=== PATIENT | male | born 1975 | race Two or more races ===

== ENCOUNTER 2020-03-26 18:15 | Inpatient (IN) | payer OTHER ==
[2020-03-26] MEDS ORDERED: ACETAMINOPHEN TAB 500 MG TAB PO STA ×2 (18:51→22:16)
--- NOTE | 2020-03-26 19:25 | ED ---
General Adult HPI - General Chief complaint: Upper Respiratory Infection Stated complaint: Covid, SOB Time Seen by Provider: 03/26/20 18:26 Source: patient, police, RN notes reviewed, old records reviewed Mode of arrival: ambulatory Limitations: no limitations - History of Present Illness Initial comments: 45-year-old male presents from [facility] with concerns for shortness of breath weakness. Patient tested positive for Reyes virus infection on Saturday. His symptoms started last Saturday. He is on day 8 of symptoms. Patient has a history of hypertension and diabetes. Patient states that he has been feeling weak. He reports his symptoms became unmanageable at the detention and Patient was transported to emergency department. Patient has history of asthma. - Related Data Allergies Allergy/AdvReac Type Severity Reaction Status Date / Time No Known Allergies Allergy Verified 03/26/20 18:22 Review of Systems ROS Statement: Those systems with pertinent positive or pertinent negative responses have been documented in the HPI. ROS Other: All systems not noted in ROS Statement are negative. Past Medical History Past Medical History: Asthma, Diabetes Mellitus, GERD/Reflux, Hypertension, Prostate Disorder, Sleep Apnea/CPAP/BIPAP Additional Past Medical History / Comment(s): Covid 19 History of Any Multi-Drug Resistant Organisms: None Reported Past Surgical History: Joint Replacement Additional Past Surgical History / Comment(s): rt hip, abd surgery Past Psychological History: No Psychological Hx Reported Smoking Status: Former smoker Past Alcohol Use History: None Reported Past Drug Use History: None Reported General Exam - General Exam Comments Initial Comments: 45 year old male. No distress Limitations: no limitations General appearance: alert, in no apparent distress Head exam: Present: atraumatic, normocephalic, normal inspection Eye exam: Present: normal appearance, PERRL, EOMI. Absent: scleral icterus, conjunctival injection, periorbital swelling ENT exam: Present: normal exam, mucous membranes moist Neck exam: Present: normal inspection. Absent: tenderness, meningismus, lymphadenopathy Respiratory exam: Present: wheezes. Absent: normal lung sounds bilaterally, respiratory distress, rales, rhonchi, stridor Cardiovascular Exam: Present: regular rate, normal rhythm, normal heart sounds. Absent: systolic murmur, diastolic murmur, rubs, gallop, clicks GI/Abdominal exam: Present: soft, normal bowel sounds. Absent: distended, tenderness, guarding, rebound, rigid Extremities exam: Present: normal inspection, full ROM, normal capillary refill. Absent: tenderness, pedal edema, joint swelling, calf tenderness Back exam: Present: normal inspection Neurological exam: Present: alert, oriented X3, CN II-XII intact Psychiatric exam: Present: normal affect, normal mood Skin exam: Present: warm Course Vital Signs 03/26/20 03/26/20 03/26/20 18:18 19:00 19:35 Temperature 100.0 F H Pulse Rate 93 80 Respiratory 22 23 23 Rate Blood Pressure 106/70 114/70 O2 Sat by Pulse 95 93 L Oximetry 03/26/20 21:35 Temperature Pulse Rate 78 Respiratory 23 Rate Blood Pressure 116/67 O2 Sat by Pulse 92 L Oximetry EKG Findings - EKG Comments: EKG Findings:: EKG performed at 1848 shows normal sinus rhythm normal EKG. Ventricular rate of 86 bpm. MO interval is 152 ms. QRS ration is 96 most seconds. QT QTc is 360/4:30 milliseconds. Medical Decision Making - Medical Decision Making 45-year-old male presents emergency department today with weakness worsening shortness of breath and cough. He is from [facility]. He was diagnosed with Covid on Saturday. At this time patient's chest x-ray shows interstitial pneumonia. Was found to be hypoxic satting at 90% on room air. Placed on 2 L oxygen. Is given IV fluid bolus. Chest x-ray shows pneumonia and was started on Rocephin. At this time Patient will be admitted due to hypoxia and pneumonia due to Covid 19. Discussed case with Dr. Stewart and discussed with Dr. Rojas, whom requests pulmonology on consult. - Lab Data Result diagrams: 03/26/20 19:16 03/26/20 19:16 Lab Results 03/26/20 03/26/20 03/26/20 Range/Units 19:16 19:16 19:16 WBC 2.9 L (3.8-10.6) k/uL RBC 4.74 (4.30-5.90) m/uL Hgb 12.8 L (13.0-17.5) gm/dL Hct 38.7 L (39.0-53.0) % MCV 81.8 (80.0-100.0) fL MCH 27.0 (25.0-35.0) pg MCHC 33.1 (31.0-37.0) g/dL RDW 14.4 (11.5-15.5) % Plt Count 171 (150-450) k/uL MPV 7.8 Neutrophils % 76 % Lymphocytes % 16 % Monocytes % 4 % Eosinophils % 1 % Basophils % 0 % Neutrophils # 2.2 (1.3-7.7) k/uL Lymphocytes # 0.5 L (1.0-4.8) k/uL Monocytes # 0.1 (0-1.0) k/uL Eosinophils # 0.0 (0-0.7) k/uL Basophils # 0.0 (0-0.2) k/uL PT 9.9 (9.0-12.0) sec INR 0.9 (<1.2) APTT 27.9 (22.0-30.0) sec D-Dimer 0.25 (<0.60) mg/L FEU Sodium 135 L (137-145) mmol/L Potassium 4.1 (3.5-5.1) mmol/L Chloride 102 (98-107) mmol/L Carbon Dioxide 26 (22-30) mmol/L Anion Gap 7 mmol/L BUN 15 (9-20) mg/dL Creatinine 0.68 (0.66-1.25) mg/dL Est GFR (CKD-EPI)AfAm >90 (>60 ml/min/1.73 sqM) Est GFR (CKD-EPI)NonAf >90 (>60 ml/min/1.73 sqM) Glucose 111 H (74-99) mg/dL Plasma Lactic Acid Hesham (0.7-2.0) mmol/L Calcium 8.2 L (8.4-10.2) mg/dL Magnesium 2.0 (1.6-2.3) mg/dL Total Bilirubin 0.7 (0.2-1.3) mg/dL AST 57 (17-59) U/L ALT 37 (4-49) U/L Alkaline Phosphatase 118 (38-126) U/L Lactate Dehydrogenase 680 H (313-618) U/L C-Reactive Protein 83.4 H (<10.0) mg/L Total Protein 6.9 (6.3-8.2) g/dL Albumin 3.6 (3.5-5.0) g/dL 03/26/20 Range/Units 19:16 WBC (3.8-10.6) k/uL RBC (4.30-5.90) m/uL Hgb (13.0-17.5) gm/dL Hct (39.0-53.0) % MCV (80.0-100.0) fL MCH (25.0-35.0) pg MCHC (31.0-37.0) g/dL RDW (11.5-15.5) % Plt Count (150-450) k/uL MPV Neutrophils % % Lymphocytes % % Monocytes % % Eosinophils % % Basophils % % Neutrophils # (1.3-7.7) k/uL Lymphocytes # (1.0-4.8) k/uL Monocytes # (0-1.0) k/uL Eosinophils # (0-0.7) k/uL Basophils # (0-0.2) k/uL PT (9.0-12.0) sec INR (<1.2) APTT (22.0-30.0) sec D-Dimer (<0.60) mg/L FEU Sodium (137-145) mmol/L Potassium (3.5-5.1) mmol/L Chloride (98-107) mmol/L Carbon Dioxide (22-30) mmol/L Anion Gap mmol/L BUN (9-20) mg/dL Creatinine (0.66-1.25) mg/dL Est GFR (CKD-EPI)AfAm (>60 ml/min/1.73 sqM) Est GFR (CKD-EPI)NonAf (>60 ml/min/1.73 sqM) Glucose (74-99) mg/dL Plasma Lactic Acid Hesham 1.0 (0.7-2.0) mmol/L Calcium (8.4-10.2) mg/dL Magnesium (1.6-2.3) mg/dL Total Bilirubin (0.2-1.3) mg/dL AST (17-59) U/L ALT (4-49) U/L Alkaline Phosphatase (38-126) U/L Lactate Dehydrogenase (313-618) U/L C-Reactive Protein (<10.0) mg/L Total Protein (6.3-8.2) g/dL Albumin (3.5-5.0) g/dL - Radiology Data Radiology results: report reviewed Chest x-ray shows pulmonary interstitial pneumonia. Normal heart. Disposition Clinical Impression: Hypoxia, Pneumonia, COVID-19 Disposition: ADMITTED IP TO THIS HOSP Condition: Stable Is patient prescribed a controlled substance at d/c from ED?: No Referrals: None,Stated [Primary Care Provider] - 1-2 days Time of Disposition: 21:48
[2020-03-26 19:31] LABS: Basophils % (A) 0 %; Eosinophils % (A) 1 %; HCT 38.7 % (39.0-53.0); HGB 12.8 gm/dL (13.0-17.5); Lymphocytes # (A) 0.5 k/uL (1.0-4.8); Lymphocytes % (A) 16 %; MCHC 33.1 g/dL (31.0-37.0); MCV 81.8 fL (80.0-100.0); Mean Platelet Volume 7.8; Monocytes # (A) 0.1 k/uL (0-1.0); Monocytes % (A) 4 %; Neutrophils # (A) 2.2 k/uL (1.3-7.7); Neutrophils % (A) 76 %; Platelet Count 171 k/uL (150-450); RBC 4.74 m/uL (4.30-5.90); RDW 14.4 % (11.5-15.5); WBC 2.9 k/uL (3.8-10.6)
--- NOTE | 2020-03-26 19:35 | XR ---
EXAMINATION TYPE: XR chest 1V portable DATE OF EXAM: 03/26/2020 COMPARISON: NONE HISTORY: Short of breath. Cough. TECHNIQUE: Single view FINDINGS: Heart and mediastinum are normal. There is some diffuse pulmonary interstitial infiltrate. There is poor inspiration. There is no pleural effusion. IMPRESSION: There is pulmonary interstitial pneumonia. Normal heart.
[2020-03-26 19:49] LABS: ALT 37 U/L (4-49); AST 57 U/L (17-59); African American GFR (CKD) >90 (>60 ml/min/1.73 sqM); Albumin 3.6 g/dL (3.5-5.0); Alkaline Phosphatase 118 U/L (38-126); Anion Gap 7 mmol/L; Blood Urea Nitrogen 15 mg/dL (9-20); C Reactive Protein 83.4 mg/L (<10.0); Calcium 8.2 mg/dL (8.4-10.2); Carbon Dioxide 26 mmol/L (22-30); Chloride 102 mmol/L (98-107); Glucose 111 mg/dL (74-99); LDH 680 U/L (313-618); Non-African American GFR(CKD) >90 (>60 ml/min/1.73 sqM); Potassium 4.1 mmol/L (3.5-5.1); Sodium 135 mmol/L (137-145); Total Bilirubin 0.7 mg/dL (0.2-1.3); Total Protein 6.9 g/dL (6.3-8.2)
[2020-03-26 19:57] LABS: D-Dimer 0.25 mg/L FEU (<0.60); INR 0.9 (<1.2); Partial Thromboplastin Time 27.9 sec (22.0-30.0); Prothrombin Time 9.9 sec (9.0-12.0)
[2020-03-26] MEDS ORDERED: SODIUM CHLORIDE 0.9% 1,000 ML IV ONE (20:53)
[2020-03-26] MEDS ORDERED: cefTRIAXone IN SWFI 1,000 MG/10 ML SYRINGE IVP STA (20:55)
[2020-03-26] MEDS: SODIUM CHLORIDE 0.9% 1,000 ML IV SCH (21:31)
[2020-03-26] MEDS ORDERED: DEXAMETHASONE SOD PHOSPHATE 10 MG/ML 1 ML VIAL IV STA (21:32)
[2020-03-26] MEDS ORDERED: ALBUTEROL HFA INHALER INHALATION STA (21:32)
[2020-03-26] MEDS ORDERED: NALOXONE 0.4 MG/ML 1 ML VIAL IV PRN (22:15)
[2020-03-26] MEDS ORDERED: MORPHINE SULFATE 4 MG/ML SYRINGE IV PRN (22:15)
[2020-03-26] MEDS ORDERED: IBUPROFEN 400 MG TAB PO PRN (22:15)
[2020-03-26] MEDS ORDERED: ONDANSETRON 4 MG/2 ML VIAL IVP PRN (22:15)
[2020-03-26] MEDS ORDERED: KETOROLAC 15 MG/ML 1 ML VIAL IVP PRN (22:15)
[2020-03-26] MEDS: ACETAMINOPHEN TAB 325 MG TAB PO SCH (22:58)
[2020-03-26] MEDS ORDERED: LOPERAMIDE 2 MG CAP PO PRN (23:10)
[2020-03-26] MEDS ORDERED: ALBUTEROL NEBULIZED 2.5 MG/3 ML INHALATION PRN (23:10)
[2020-03-26] MEDS ORDERED: DOCUSATE 100 MG CAP PO PRN (23:10)
[2020-03-26] MEDS ORDERED: ACETAMINOPHEN TAB 325 MG TAB PO PRN (23:10)
[2020-03-26 23:43] LABS: Ferritin 96.4 ng/mL (22.0-322.0)
[2020-03-27] MEDS: ACETAMINOPHEN TAB 325 MG TAB PO SCH ×3 (05:11→17:27)
[2020-03-27] MEDS: ALBUTEROL HFA INHALER INHALATION SCH ×5 (07:21→19:31)
[2020-03-27 08:46] LABS: Glucose,Whole Blood 143 mg/dL (75-99)
[2020-03-27] MEDS ORDERED: DEXAMETHASONE SOD PHOSPHATE 10 MG/ML 1 ML VIAL IV SCH (09:00)
[2020-03-27] MEDS ORDERED: NAPROXEN 500 MG PO SCH (09:00)
[2020-03-27] MEDS: PANTOPRAZOLE 40 MG/10 ML VIAL IV SCH (09:10)
[2020-03-27] MEDS: ZINC SULFATE 220 MG CAP PO SCH (09:32)
[2020-03-27] MEDS: glipiZIDE 5 MG TAB PO SCH (09:33)
[2020-03-27] MEDS: DULoxetine HCL 60 MG CAPSULE.DR PO SCH ×2 (09:33→21:25)
[2020-03-27] MEDS: dexAMETHasone 2 MG TAB PO SCH (09:33)
[2020-03-27] MEDS: ASCORBIC ACID 500 MG TAB PO SCH (09:33)
--- NOTE | 2020-03-27 09:57 | CONS ---
CONSULTATION PULMONARY/CRITICAL CARE CONSULTATION: DATE OF SERVICE: March 27, 2020 HISTORY OF PRESENT ILLNESS: This is a 45-year-old male who resides at [facility]. He has been there for a couple years. He apparently tested positive for COVID-19 infection this past Saturday, although he states his symptoms began 3 or 4 days prior to that, maybe on the prior Saturday. He has a number of different complaints including nasal congestion, shortness of breath, cough, sore throat, and just feeling weak and fatigued. He apparently has a history of multiple medical problems including diabetes, hypertension, hyperlipidemia, and a hernia. The patient is a non smoker. He sees a nurse practitioner at the custodial facility. Currently, the patient is not receiving any IV fluids. The patient is not on any supplemental oxygen. His saturations are right around the 90-92 percent range. He does not appear to be in any great distress. ALLERGIES: Denied. HOME MEDICATIONS: Include metformin, Vistaril, Glucotrol, Flomax, Protonix, Zofran, naproxen, Dulera, loperamide, lisinopril, insulin, famotidine, Colace, Cymbalta, Zyrtec, Zithromax, Lipitor, albuterol and Tylenol. MEDICAL HISTORY: Positive for asthma, diabetes, GERD, hypertension, hyperlipidemia, sleep apnea, and BPH. SURGICAL HISTORY: Includes right hip surgery and abdominal surgery. He also had a joint replacement. SOCIAL HISTORY: Positive for previous tobacco use. Denies any alcohol or illicit drug use. FAMILY HISTORY: Not reported. OCCUPATIONAL HISTORY: Not noted. Again, he has been a resident of the [facility] for 2 years. REVIEW OF SYSTEMS: CONSTITUTIONAL weakness and fatigue. NEUROLOGIC negative. HEENT: Sore throat, nasal congestion. CARDIOVASCULAR negative. PULMONARY: Shortness of breath, cough, chest congestion. GI negative. negative. RHEUMATOLOGIC negative. IMMUNOLOGIC negative. ENDOCRINOLOGIC negative. DERMATOLOGIC negative. PHYSICAL EXAMINATION: VITAL SIGNS: Current vital signs are reviewed. Temperature is 97.4, heart rate 65, respiratory rate 18, blood pressure 113/74, mean 87. Room-air saturation about 90-92 percent. On 4 L he was 96%. GENERAL: Appears in no acute distress. HEENT: Examination is grossly unremarkable. NECK: Supple. Full range of motion. No adenopathy. Neck veins are flat. CARDIOVASCULAR: Examination reveals a regular rhythm and rate. S1, S2 normal. LUNGS: Scattered rhonchi. No wheezes or crackles. ABDOMEN: Obese. EXTREMITIES are intact. No cyanosis, clubbing, or edema. SKIN: Without rash. No wheeze. NEUROLOGIC: Brief neurological examination is nonfocal. LABS: Reviewed. White count 2.9, hemoglobin 12.8, hematocrit 38.7, platelet count 171,000. Lymphocyte count is low. So he is both leukopenic and lymphopenic. PT/INR, PTT normal. D-dimer normal. Sodium 135, potassium 4.1 chloride 102 CO2 26, anion gap is 7. BUN and creatinine were 15 and 0.68. Lactic acid was normal. Calcium 8.2, LDH 680, C-reactive protein 83.4, procalcitonin level was low at 0.04. A chest x-ray shows diffuse interstitial changes consistent with COVID-19 pneumonitis. Current medications are reviewed. He is on Tylenol, albuterol inhaler, Lipitor, Zithromax, Symbicort, Zyrtec, Decadron, Colace, Cymbalta, famotidine, Glucotrol, hydroxyzine, Motrin, insulin, Toradol, lisinopril, Imodium, metformin, morphine, Narcan, Zofran, Protonix and Flomax. ASSESSMENT: 1. COVID-19 pneumonitis, with minimal pulmonary complaints at this time. 2. History of chronic bronchial asthma, currently stable. 3. History of diabetes. 4. Hypertension. 5. Hyperlipidemia. 6. Gastroesophageal reflux disease. PLAN: Currently, medications are reviewed. His chest x-ray shows some diffuse interstitial pattern. The patient will be placed on albuterol and Symbicort. Zithromax will be DC'd in light of the very low procalcitonin level. The patient's Decadron can be taken orally. No additional recommendations are made. The patient should also be taking vitamin C, vitamin D3, and zinc. We will add those. Additional recommendations and suggestions are forthcoming. Prognosis is thought to be generally good. MMODL / IJN: [id number] /
[2020-03-27] MEDS: lisinopriL 10 MG TAB PO SCH (10:01)
[2020-03-27] MEDS: metFORMIN 500 MG TAB PO SCH ×3 (10:01→17:31)
[2020-03-27] MEDS: PANTOPRAZOLE 40 MG TABLET PO SCH (10:01)
[2020-03-27] MEDS: SODIUM CHLORIDE 0.9% 1,000 ML IV SCH (10:02)
[2020-03-27] MEDS: NON FORMULARY DRUG (Cetirizine Hcl [Cetirizine Hcl] 10 MG Tablet) PO SCH (10:21)
[2020-03-27] MEDS: CHOLECALCIFEROL 400 UNIT TAB PO SCH (10:21)
[2020-03-27] MEDS: SYMBICORT 160-4.5 MCG INHALER INHALATION SCH (11:51)
--- NOTE | 2020-03-27 18:38 | P.HPIM ---
History of Present Illness H&P Date: 03/27/20 Chief Complaint: Difficulty in breathing Mr. Rose is a 45-year-old male with a past medical history of asthma, type 2 diabetes mellitus, GERD, hypertension, prostate disorder, obstructive sleep apnea, who is a resident of [facility] brought into the hospital for difficulty in breathing as he was tested positive for coVID 19 infection last Saturday. Patient states that he has been having symptoms 3-4 days prior to testing him for Covid. He complains of cough with difficulty in breathing, sore throat generalized weakness and fatigue. He also mentions that he has multiple medical issues as mentioned above. Patient also complains of myalgia. He denies having any chest pain or palpitations. No abdominal pain nausea vomiting or diarrhea. No dysuria or hematuria. Patient denies having any swelling of his extremities. In the ER, at the time of admission patient had a fever of 100.0, pulse rate of 93, respiratory rate 22, blood pressure 10 6 x 70, saturating at 93% on room air. He had labs done showing a white count of 2.9, hemoglobin 12.8, platelets 171. Sodium 135, Miranda 4.1, chloride 102, bicarbonate 27. When necessary 15, creatinine 0.68 blood sugars between 100s to 150s. D-dimer 0.25, ferritin 96.4, C-reactive protein 83.4, lactate dehydrogenase 680. Review of Systems REVIEW OF SYSTEMS: PSYCH: No anxiety or depression NEURO:No c/o weakness of the extremties, No facial droop, No speech abnormalities. VASCULAR: Peripheral nervous system within the normal limits no edema HEMATOLOGIC: No history of easy bleeding and bruising . RESPIRATORY: No cough, No SOB, No chest discomfort. IMMUNE: No recurrent infections INTEGUMENT: no rashes OPHTHALMOLOGIC: No blurry vision and no eye discharge : No dysuria or hematuria CARDIAC: No chest pain , shortness of breath , paroxysmal nocturnal dyspnea MUSCULOSKELETAL : No Aches or pains in the joints or muscles. GI: No abdominal pain, Nausea or vomiting. No constipation or diarrhea. All 13 ROS done and negative except for the above. Past Medical History Past Medical History: Asthma, Diabetes Mellitus, GERD/Reflux, Hypertension, Prostate Disorder, Sleep Apnea/CPAP/BIPAP Additional Past Medical History / Comment(s): Covid 19 History of Any Multi-Drug Resistant Organisms: None Reported Past Surgical History: Joint Replacement Additional Past Surgical History / Comment(s): rt hip, abd surgery Past Psychological History: No Psychological Hx Reported Smoking Status: Former smoker Past Alcohol Use History: None Reported Past Drug Use History: None Reported Medications and Allergies Home Medications Medication Instructions Recorded Confirmed Type Acetaminophen Tab [Tylenol] 650 mg PO BID PRN 03/26/20 03/26/20 History Albuterol Inhaler [Ventolin Hfa 1 puff INHALATION RT-QID 03/26/20 03/26/20 History Inhaler] Albuterol Nebulized [Ventolin 2.5 mg INHALATION RT-TID PRN 03/26/20 03/26/20 History Nebulized] Atorvastatin Calcium [Lipitor] 20 mg PO HS 03/26/20 03/26/20 History Azithromycin [Zithromax] 250 mg PO HS 03/26/20 03/26/20 History Cetirizine HCl 10 mg PO DAILY 03/26/20 03/26/20 History DULoxetine HCL [Cymbalta] 60 mg PO BID 03/26/20 03/26/20 History Docusate [Colace] 100 mg PO BID PRN 03/26/20 03/26/20 History Famotidine [Pepcid] 20 mg PO HS 03/26/20 03/26/20 History Insulin Detemir (Levemir) [Levemir] 10 unit SQ HS 03/26/20 03/26/20 History Insulin Regular [HumuLIN R] See Protocol SQ ACHS 03/26/20 03/26/20 History Lisinopril [Zestril] 10 mg PO DAILY 03/26/20 03/26/20 History Loperamide [Imodium] 4 mg PO TID PRN 03/26/20 03/26/20 History Mometasone/Formoterol [Dulera 200 1 puff INHALATION RT-DAILY 03/26/20 03/26/20 History Mcg-5 Mcg Inhaler] Naproxen 500 mg PO BID 03/26/20 03/26/20 History Ondansetron [Zofran] 4 - 8 mg PO TID PRN 03/26/20 03/26/20 History Pantoprazole [Protonix] 40 mg PO DAILY 03/26/20 03/26/20 History Tamsulosin [Flomax] 0.4 mg PO HS 03/26/20 03/26/20 History glipiZIDE [Glucotrol] 5 mg PO DAILY 03/26/20 03/26/20 History hydrOXYzine pamoate [Vistaril] 50 mg PO HS 03/26/20 03/26/20 History metFORMIN HCL [Glucophage] 500 mg PO TID 03/26/20 03/26/20 History Allergies Allergy/AdvReac Type Severity Reaction Status Date / Time No Known Allergies Allergy Verified 03/26/20 22:05 Physical Exam Vitals: Vital Signs Temp Pulse Resp BP Pulse Ox 03/27/20 17:26 98.3 F 84 18 122/81 92 L 03/27/20 12:31 98.6 F 83 17 121/72 93 L 03/27/20 08:29 98.4 F 76 18 126/97 93 L 03/27/20 05:10 97.4 F L 65 18 113/74 93 L 03/27/20 02:05 98 F 73 18 130/85 96 03/27/20 00:20 84 22 93 L 03/26/20 23:00 80 22 92 L 03/26/20 22:00 77 23 116/67 94 L 03/26/20 21:35 78 23 116/67 92 L 03/26/20 21:30 114/73 93 L 03/26/20 21:00 116/72 96 03/26/20 20:30 111/70 96 03/26/20 20:00 114/70 96 03/26/20 19:35 80 23 114/70 93 L 03/26/20 19:34 92 L 03/26/20 19:00 23 PHYSICAL EXAM GEN. APPEARANCE: alert, in no apparent distress HEAD EXAM: atraumatic, normocephalic, normal inspection EYE EXAM: normal appearance, PERRL, EOMI. no pallor. No icterus ENT EXAM: normal exam, mucous membranes moist NECK EXAM: normal inspection. No JVD. No organomegaly. RESPIRATORY EXAM: normal lung sounds bilaterally. CARDIOVASCULAR EXAM: regular rate, normal rhythm, normal heart sounds. GI/ABDOMINAL EXAM: soft, normal bowel sounds. Absent: distended, tenderness, guarding, rebound, rigid EXTREMITIES EXAM: No edema NEUROLOGICAL EXAM: alert, oriented X3,No focal deficit PSYCHIATRIC EXAM: normal affect, normal mood SKIN EXAM: no rash Results CBC & Chem 7: 03/26/20 19:16 03/26/20 19:16 Labs: Abnormal Lab Results - Last 24 Hours (Table) 03/26/20 03/26/20 03/27/20 Range/Units 19:16 19:16 08:44 WBC 2.9 L (3.8-10.6) k/uL Hgb 12.8 L (13.0-17.5) gm/dL Hct 38.7 L (39.0-53.0) % Lymphocytes # 0.5 L (1.0-4.8) k/uL Sodium 135 L (137-145) mmol/L Glucose 111 H (74-99) mg/dL POC Glucose (mg/dL) 143 H (75-99) mg/dL Calcium 8.2 L (8.4-10.2) mg/dL Lactate Dehydrogenase 680 H (313-618) U/L C-Reactive Protein 83.4 H (<10.0) mg/L Assessment and Plan Assessment: ASSESSMENT Acute hypoxic respiratory failure secondary to COVID pneumonia Chronic bronchial asthma stable Type 2 diabetes mellitus Hypertension Hyperlipidemia GERD PLAN: Patient had chest x-ray showing interstitial pattern consistent with Covid pneumonia. Patient has been started on Decadron. We will continue with GI DVT prophylaxis. Continue with breathing treatments. Further recommendations depending on the progress of the patient.
[2020-03-27] MEDS ORDERED: AZITHROMYCIN 250 MG TAB PO SCH (21:00)
[2020-03-27] MEDS: hydrOXYzine pamoate 25 MG CAP PO SCH (21:25)
[2020-03-27] MEDS: ATORVASTATIN 20 MG TAB PO SCH (21:25)
[2020-03-27] MEDS: TAMSULOSIN 0.4 MG CAP.ER.24H PO SCH (21:25)
[2020-03-27] MEDS: ENOXAPARIN 40 MG/0.4 ML SYRINGE SQ SCH (21:26)
[2020-03-27] MEDS: FAMOTIDINE 20 MG TAB PO SCH (21:26)
[2020-03-28] MEDS: INSULIN DETEMIR (LEVEMIR) 100 UNIT/ML SYR SQ SCH ×2 (01:16→20:43)
[2020-03-28] MEDS: SODIUM CHLORIDE 0.9% 1,000 ML IV SCH ×3 (01:19→20:48)
[2020-03-28 01:24] LABS: Glucose,Whole Blood 116 mg/dL (75-99)
[2020-03-28] MEDS: ACETAMINOPHEN TAB 325 MG TAB PO SCH ×4 (07:29→22:53)
[2020-03-28] MEDS: ALBUTEROL HFA INHALER INHALATION SCH ×4 (07:41→20:22)
[2020-03-28 08:02] LABS: Basophils % (A) 0 %; Eosinophils % (A) 0 %; HCT 36.8 % (39.0-53.0); HGB 11.9 gm/dL (13.0-17.5); Hypochromasia Slight; Lymphocytes # (A) 0.7 k/uL (1.0-4.8); Lymphocytes % (A) 11 %; MCH 26.9 pg (25.0-35.0); MCHC 32.5 g/dL (31.0-37.0); MCV 82.7 fL (80.0-100.0); Mean Platelet Volume 7.5; Monocytes # (A) 0.2 k/uL (0-1.0); Monocytes % (A) 3 %; Neutrophils # (A) 4.9 k/uL (1.3-7.7); Neutrophils % (A) 85 %; Platelet Count 243 k/uL (150-450); RBC 4.44 m/uL (4.30-5.90); RDW 14.4 % (11.5-15.5); WBC 5.8 k/uL (3.8-10.6)
[2020-03-28] MEDS: PANTOPRAZOLE 40 MG TABLET PO SCH (09:32)
[2020-03-28] MEDS: DULoxetine HCL 60 MG CAPSULE.DR PO SCH ×2 (09:32→20:43)
[2020-03-28] MEDS: glipiZIDE 5 MG TAB PO SCH (09:32)
[2020-03-28] MEDS: metFORMIN 500 MG TAB PO SCH ×3 (09:33→18:12)
[2020-03-28] MEDS: lisinopriL 10 MG TAB PO SCH (09:33)
[2020-03-28] MEDS: PANTOPRAZOLE 40 MG/10 ML VIAL IV SCH (09:35)
[2020-03-28] MEDS: dexAMETHasone 2 MG TAB PO SCH (09:44)
[2020-03-28] MEDS: CHOLECALCIFEROL 400 UNIT TAB PO SCH (09:44)
[2020-03-28] MEDS: ZINC SULFATE 220 MG CAP PO SCH (09:44)
[2020-03-28] MEDS: ASCORBIC ACID 500 MG TAB PO SCH (09:44)
[2020-03-28] MEDS: ENOXAPARIN 40 MG/0.4 ML SYRINGE SQ SCH (09:45)
[2020-03-28 13:10] LABS: African American GFR (CKD) 124.2 (60.0-200.0); Anion Gap 6.8 mmol/L (4.00-12.00); BUN/Creat Ratio 17.5 Ratio (12.00-20.00); Calcium 8.4 mg/dL (8.7-10.3); Carbon Dioxide 28.2 mmol/L (21.6-31.8); Non-African American GFR(CKD) 107.1 (60.0-200.0); Potassium 3.9 mmol/L (3.5-5.5)
[2020-03-28 13:29] LABS: C Reactive Protein 4.6 mg/dL (0.0-0.8)
[2020-03-28] MEDS ORDERED: BENZOCAINE/MENTHOL LOZENG 1 EACH LOZENGE MUCOUS MEM PRN (13:37)
--- NOTE | 2020-03-28 14:22 | P.PN ---
Subjective Progress Note Date: 03/28/20 This is a 45-year-old male patient came from [facility] with CoVID 19 infection on 03/22/2020 and the patient was symptomatically for 3 or 4 days prior to that and his symptoms were those of nasal congestion and shortness of breath and cough and sore throat. He is a nonsmoker. He is not on any supplemental oxygen. Pulse ox is in the order of 90-92% on room air oxygen. He is known to have asthma, diabetes, hypertension, acid reflux, hyperlipidemia, SVETLANA and BPH. D-dimer is low at 0.26. The patient white cell count is at 5.8. Showing bilateral chest x-ray showing bilateral pulmonary infiltrates.. The patient currently resides of oxygen by nasal cannula with a pulse of 92%. The patient is currently on Lovenox 40 mg subcu for DVT prophylaxis, Decadron 6 mg by mouth daily and he was not given Remdesivir. Nevertheless, by the time he arrived to the medical floor, the patient was placed on 2 L of oxygen by nasal cannula to bring his pulse ox above 90%. As mentioned, chest x-rays consistent with bilateral pulmonary infiltrates/pneumonia. Objective - Vital Signs Vital signs: Vital Signs Temp 98.2 F 03/28/20 01:17 Pulse 77 03/28/20 03:35 Resp 16 03/28/20 08:00 BP 110/68 03/28/20 01:17 Pulse Ox 92 L 03/28/20 03:35 Intake & Output 03/27/20 03/28/20 03/28/20 18:59 06:59 18:59 Other: Voiding Method Urinal - Exam GEN. APPEARANCE: alert, in no apparent distress HEAD EXAM: atraumatic, normocephalic, normal inspection EYE EXAM: normal appearance, PERRL, EOMI. no pallor. No icterus ENT EXAM: normal exam, mucous membranes moist NECK EXAM: normal inspection. No JVD. No organomegaly. RESPIRATORY EXAM: normal lung sounds bilaterally. CARDIOVASCULAR EXAM: regular rate, normal rhythm, normal heart sounds. GI/ABDOMINAL EXAM: soft, normal bowel sounds. Absent: distended, tenderness, guarding, rebound, rigid EXTREMITIES EXAM: No edema NEUROLOGICAL EXAM: alert, oriented X3,No focal deficit PSYCHIATRIC EXAM: normal affect, normal mood SKIN EXAM: no rash - Labs CBC & Chem 7: 03/28/20 07:28 03/28/20 07:28 Labs: Abnormal Lab Results - Last 24 Hours (Table) 03/28/20 03/28/20 03/28/20 Range/Units 01:23 07:28 07:28 Hgb 11.9 L (13.0-17.5) gm/dL Hct 36.8 L (39.0-53.0) % Lymphocytes # 0.7 L (1.0-4.8) k/uL POC Glucose (mg/dL) 116 H (75-99) mg/dL Calcium 8.4 L (8.7-10.3) mg/dL Lactate Dehydrogenase 274 H (120-246) U/L C-Reactive Protein 4.6 H (0.0-0.8) mg/dL Microbiology - Last 24 Hours (Table) 03/26/20 19:16 Blood Culture - Preliminary Blood No Growth after 24 hours Assessment and Plan Plan: 1 Acute hypoxic respiratory failure secondary to COVID pneumonia, the patient is currently on 2 L of oxygen by nasal cannula with a pulse is 92%. Chest x-ray showing bilateral pulmonary infiltrates consistent with COVID 19 relates pneumonia. 2 acute shortness of breath secondary to above 3 Chronic bronchial asthma stable 4 Type 2 diabetes mellitus 5 Hypertension 6 Hyperlipidemia 7 GERD pplan We'll treat this patient he is currently outside the window for Remdesivir, Decadron and DVT prophylaxis with Lovenox. Continue vitamin C, vitamin D, melatonin, Pepcid and wheezing. We'll monitor his progress. IV hydration with fluids normal saline at rate of 75 mL an hour.
--- NOTE | 2020-03-28 16:11 | P.PN ---
Subjective Progress Note Date: 03/28/20 Mr. Rose is a 45-year-old male with a past medical history of asthma, type 2 diabetes mellitus, GERD, hypertension, prostate disorder, obstructive sleep apnea, who is a resident of [facility] brought into the hospital for difficulty in breathing as he was tested positive for coVID 19 infection last Saturday. Patient states that he has been having symptoms 3-4 days prior to testing him for Covid. He complains of cough with difficulty in breathing, sore throat generalized weakness and fatigue. He also mentions that he has multiple medical issues as mentioned above. Patient also complains of myalgia. He denies having any chest pain or palpitations. No abdominal pain nausea vomiting or diarrhea. No dysuria or hematuria. Patient denies having any swelling of his extremities. In the ER, at the time of admission patient had a fever of 100.0, pulse rate of 93, respiratory rate 22, blood pressure 10 6 x 70, saturating at 93% on room air. He had labs done showing a white count of 2.9, hemoglobin 12.8, platelets 171. Sodium 135, Miranda 4.1, chloride 102, bicarbonate 27. When necessary 15, creatinine 0.68 blood sugars between 100s to 150s. D-dimer 0.25, ferritin 96.4, C-reactive protein 83.4, lactate dehydrogenase 680. 03/28/2020 Patient is seen and evaluated in follow-up currently maintained 91-92% on room air. Patient is on dexamethasone, Lovenox, vitamin C and D supplements and will continue at this time. Pulmonary is following. Patient states his breathing posey s slightly improved although continues to have a sore throat. Cepacol ordered. Lactate dehydrogenase is down to 274, C-reactive protein is down to 4.6, BMP within normal limits. Review of systems: Constitutional: No reports of fatigue, fever, or chills Cardiovascular: No reports of chest pain or palpitations Respiratory: Reports mild shortness of breath and cough, reports sore throat GI: No reports of nausea, vomiting, or diarrhea : No reports of dysuria or retention Neurovascular: No reports of weakness or numbness All medications have been reviewed Objective - Vital Signs Vital signs: Vital Signs Temp 98.2 F 03/28/20 01:17 Pulse 77 03/28/20 03:35 Resp 16 03/28/20 08:00 BP 110/68 03/28/20 01:17 Pulse Ox 92 L 03/28/20 03:35 Intake & Output 03/27/20 03/28/20 03/28/20 18:59 06:59 18:59 Other: Voiding Method Urinal - Exam Gen: This is a 45-year-old male currently sitting up in bed, awake, alert and oriented 3, well-developed, well-nourished. HEENT: Head is atraumatic, normocephalic. Pupils equal, round. Sclerae is anicteric. NECK: Supple. No JVD. No lymphadenopathy. No thyromegaly. LUNGS: Diminished breath sounds bilaterally with no wheezes or rhonchi. No intercostal retractions. HEART: S1, S2 are muffled ABDOMEN: Soft. Obese. Bowel sounds are present. No masses. No tenderness. EXTREMITIES: No pedal edema. No calf tenderness. NEUROLOGICAL: Patient is awake, alert and oriented x3. Cranial nerves 2 through 12 are grossly intact. - Labs CBC & Chem 7: 03/28/20 07:28 03/28/20 07:28 Labs: Abnormal Lab Results - Last 24 Hours (Table) 03/28/20 03/28/20 Range/Units 01:23 07:28 Hgb 11.9 L (13.0-17.5) gm/dL Hct 36.8 L (39.0-53.0) % Lymphocytes # 0.7 L (1.0-4.8) k/uL POC Glucose (mg/dL) 116 H (75-99) mg/dL Microbiology - Last 24 Hours (Table) 03/26/20 19:16 Blood Culture - Preliminary Blood No Growth after 24 hours Assessment and Plan Assessment: Acute hypoxic respiratory failure secondary to COVID pneumonia Chronic bronchial asthma stable Type 2 diabetes mellitus Hypertension Hyperlipidemia GERD PLAN: Continue with current medications and symptomatic treatment. Pulmonary following. Discussed with nursing staff about continuing to monitor respiratory status. Instructed to increase activity as tolerated and continue with dae thing inhalational treatments along with dexamethasone, Lovenox, vitamin C and D supplements. Patient is currently incarcerated and police officers chaperoning him. Patient will be returning to [facility] once stabilized and discharged. Further recommendations to follow pending on the progress of the patient. Possible discharge in 24 hours.
[2020-03-28] MEDS: NON FORMULARY DRUG (Cetirizine Hcl [Cetirizine Hcl] 10 MG Tablet) PO SCH (17:04)
[2020-03-28 17:11] LABS: Glucose,Whole Blood 126 mg/dL (75-99)
[2020-03-28 20:02] LABS: Glucose,Whole Blood 107 mg/dL (75-99)
[2020-03-28] MEDS: hydrOXYzine pamoate 25 MG CAP PO SCH (20:43)
[2020-03-28] MEDS: TAMSULOSIN 0.4 MG CAP.ER.24H PO SCH (20:43)
[2020-03-28] MEDS: ATORVASTATIN 20 MG TAB PO SCH (20:43)
[2020-03-28] MEDS: FAMOTIDINE 20 MG TAB PO SCH (20:43)
[2020-03-29] MEDS: SODIUM CHLORIDE 0.9% 1,000 ML IV SCH ×3 (02:23→19:19)
[2020-03-29] MEDS: ACETAMINOPHEN TAB 325 MG TAB PO SCH ×4 (04:14→21:02)
[2020-03-29 07:31] LABS: Glucose,Whole Blood 94 mg/dL (75-99)
[2020-03-29] MEDS: ZINC SULFATE 220 MG CAP PO SCH (08:32)
[2020-03-29] MEDS: ASCORBIC ACID 500 MG TAB PO SCH (08:32)
[2020-03-29] MEDS: dexAMETHasone 2 MG TAB PO SCH (08:32)
[2020-03-29] MEDS: CHOLECALCIFEROL 400 UNIT TAB PO SCH (08:33)
[2020-03-29] MEDS: PANTOPRAZOLE 40 MG TABLET PO SCH (08:33)
[2020-03-29] MEDS: SYMBICORT 160-4.5 MCG INHALER INHALATION SCH (08:33)
[2020-03-29] MEDS: metFORMIN 500 MG TAB PO SCH ×3 (08:33→17:00)
[2020-03-29] MEDS: glipiZIDE 5 MG TAB PO SCH (08:33)
[2020-03-29] MEDS: ENOXAPARIN 40 MG/0.4 ML SYRINGE SQ SCH (08:34)
[2020-03-29] MEDS: DULoxetine HCL 60 MG CAPSULE.DR PO SCH ×2 (08:40→21:01)
[2020-03-29] MEDS: lisinopriL 10 MG TAB PO SCH (08:42)
[2020-03-29] MEDS: NON FORMULARY DRUG (Cetirizine Hcl [Cetirizine Hcl] 10 MG Tablet) PO SCH (09:11)
[2020-03-29] MEDS: ALBUTEROL HFA INHALER INHALATION SCH ×4 (09:18→19:54)
[2020-03-29 11:36] LABS: Glucose,Whole Blood 102 mg/dL (75-99)
--- NOTE | 2020-03-29 13:08 | P.PN ---
Subjective Progress Note Date: 03/29/20 This is a 45-year-old male patient came from [facility] with CoVID 19 infection on 03/22/2020 and the patient was symptomatically for 3 or 4 days prior to that and his symptoms were those of nasal congestion and shortness of breath and cough and sore throat. He is a nonsmoker. He is not on any supplemental oxygen. Pulse ox is in the order of 90-92% on room air oxygen. He is known to have asthma, diabetes, hypertension, acid reflux, hyperlipidemia, SVETLANA and BPH. D-dimer is low at 0.26. The patient white cell count is at 5.8. Showing bilateral chest x-ray showing bilateral pulmonary infiltrates.. The patient currently resides of oxygen by nasal cannula with a pulse of 92%. The patient is currently on Lovenox 40 mg subcu for DVT prophylaxis, Decadron 6 mg by mouth daily and he was not given Remdesivir. Nevertheless, by the time he arrived to the medical floor, the patient was placed on 2 L of oxygen by nasal cannula to bring his pulse ox above 90%. As mentioned, chest x-rays consistent with bilateral pulmonary infiltrates/pneumonia. On today's evaluation of 03/29/2020, the patient is on room air oxygen. He is also on Lovenox for prophylaxis and he is taking Decadron 6 mg by mouth daily. No nausea. No vomiting. Reports that there is improvement in breathing. He is having cough and some soreness in his chest whenever he coughs. Nevertheless, his oxygenation is improved considerably. Objective - Vital Signs Vital signs: Vital Signs Temp 98.3 F 03/29/20 10:57 Pulse 67 03/29/20 10:57 Resp 22 03/29/20 10:57 BP 126/74 03/29/20 10:57 Pulse Ox 91 L 03/29/20 10:57 Intake & Output 03/28/20 03/29/20 03/29/20 18:59 06:59 18:59 Intake Total 1310 Output Total 800 400 Balance -800 910 Weight 127.006 kg Intake: Oral 1310 Output: Urine 800 400 Other: Voiding Method Urinal Urinal Urinal - Exam GEN. APPEARANCE: alert, in no apparent distress HEAD EXAM: atraumatic, normocephalic, normal inspection EYE EXAM: normal appearance, PERRL, EOMI. no pallor. No icterus ENT EXAM: normal exam, mucous membranes moist NECK EXAM: normal inspection. No JVD. No organomegaly. RESPIRATORY EXAM: normal lung sounds bilaterally. CARDIOVASCULAR EXAM: regular rate, normal rhythm, normal heart sounds. GI/ABDOMINAL EXAM: soft, normal bowel sounds. Absent: distended, tenderness, guarding, rebound, rigid EXTREMITIES EXAM: No edema NEUROLOGICAL EXAM: alert, oriented X3,No focal deficit PSYCHIATRIC EXAM: normal affect, normal mood SKIN EXAM: no rash - Labs CBC & Chem 7: 03/28/20 07:28 03/28/20 07:28 Labs: Abnormal Lab Results - Last 24 Hours (Table) 03/28/20 03/28/20 03/28/20 Range/Units 07:28 17:10 20:01 POC Glucose (mg/dL) 126 H 107 H (75-99) mg/dL Calcium 8.4 L (8.7-10.3) mg/dL Lactate Dehydrogenase 274 H (120-246) U/L C-Reactive Protein 4.6 H (0.0-0.8) mg/dL 03/29/20 Range/Units 11:34 POC Glucose (mg/dL) 102 H (75-99) mg/dL Calcium (8.7-10.3) mg/dL Lactate Dehydrogenase (120-246) U/L C-Reactive Protein (0.0-0.8) mg/dL Microbiology - Last 24 Hours (Table) 03/26/20 19:16 Blood Culture - Preliminary Blood No Growth after 48 hours Assessment and Plan Plan: 1 Acute hypoxic respiratory failure secondary to COVID pneumonia, the patient is currently on 2 L of oxygen by nasal cannula with a pulse is 92%. Chest x-ray showing bilateral pulmonary infiltrates consistent with COVID 19 relates pneumonia. oxygenation is improved and the patient is currently on room air oxygen 2 acute shortness of breath secondary to above 3 Chronic bronchial asthma stable 4 Type 2 diabetes mellitus 5 Hypertension 6 Hyperlipidemia 7 GERD plan We'll treat this patient he is currently outside the window for Remdesivir, Decadron and DVT prophylaxis with Lovenox. Continue vitamin C, vitamin D, melatonin, Pepcid and wheezing. We'll monitor his progress. IV hydration with fluids normal saline at rate of 75 mL an hour.. He continues to have some symptomatic.the patient has been weaned down to room air oxygen. No signs of any respiratory distress at this point. consider discharging the patient was admitted for 24-48 hours.
[2020-03-29 13:35] VITALS: BMI 38.0
[2020-03-29 17:06] LABS: Glucose,Whole Blood 82 mg/dL (75-99)
[2020-03-29 20:17] LABS: Glucose,Whole Blood 100 mg/dL (75-99)
[2020-03-29] MEDS: FAMOTIDINE 20 MG TAB PO SCH (21:01)
[2020-03-29] MEDS: hydrOXYzine pamoate 25 MG CAP PO SCH (21:01)
[2020-03-29] MEDS: ATORVASTATIN 20 MG TAB PO SCH (21:01)
[2020-03-29] MEDS: TAMSULOSIN 0.4 MG CAP.ER.24H PO SCH (21:01)
[2020-03-29] MEDS: INSULIN DETEMIR (LEVEMIR) 100 UNIT/ML SYR SQ SCH (21:02)
--- NOTE | 2020-03-29 22:18 | P.PN ---
Subjective From records Mr. Rose is a 45-year-old male with a past medical history of asthma, type 2 diabetes mellitus, GERD, hypertension, prostate disorder, obstructive sleep apnea, who is a resident of [facility] brought into the hospital for difficulty in breathing as he was tested positive for coVID 19 infection last Saturday. Patient states that he has been having symptoms 3-4 days prior to testing him for Covid. He complains of cough with difficulty in breathing, sore throat generalized weakness and fatigue. He also mentions that he has multiple medical issues as mentioned above. Patient also complains of myalgia. He denies having any chest pain or palpitations. No abdominal pain nausea vomiting or diarrhea. No dysuria or hematuria. Patient denies having any swelling of his extremities. In the ER, at the time of admission patient had a fever of 100.0, pulse rate of 93, respiratory rate 22, blood pressure 10 6 x 70, saturating at 93% on room air. He had labs done showing a white count of 2.9, hemoglobin 12.8, platelets 171. Sodium 135, Miranda 4.1, chloride 102, bicarbonate 27. When necessary 15, creatinine 0.68 blood sugars between 100s to 150s. D-dimer 0.25, ferritin 96.4, C-reactive protein 83.4, lactate dehydrogenase 680. 03/28/2020 Patient is seen and evaluated in follow-up currently maintained 91-92% on room air. Patient is on dexamethasone, Lovenox, vitamin C and D supplements and will continue at this time. Pulmonary is following. Patient states his breathing has slightly improved although continues to have a sore throat. Cepacol ordered. Lactate dehydrogenase is down to 274, C-reactive protein is down to 4.6, BMP within normal limits. Subjective: This is the first day I am taking care of the patient 03/29/2020 This is a pleasant 45 years old male with past medical history of diabetes mellitus, hypertension and other medical problems as above. He is a resident of [facility], Patient presents with respiratory distress secondary to Covid pneumonia. Patient is followed closely by pulmonary service. He is improving but cooperative from some coughing and gasping for cough medicine. Is currently on dexamethasone, normal saline at 75 milliliters per hour. Also on vitamin C, zinc and vitamin D and reflected dose of Lovenox His oxygen requirements and down to room air Possible discharge in 24-48 hours CONSTITUTIONAL: No fever, no malaise, no fatigue. HEENT: No recent visual problems or hearing problems. Denied any sore throat. CARDIOVASCULAR: No orthopnea, PND, no palpitations, no syncope. PULMONARY: No chest wall tenderness no hemoptysis. GASTROINTESTINAL: No diarrhea, no nausea, no vomiting, no abdominal pain. Normoactive bowel sounds. NEUROLOGICAL: No headaches, no weakness, no numbness. Active Medications Generic Name Dose Route Start Last Admin Trade Name Freq PRN Reason Stop Dose Admin Acetaminophen 650 mg 03/26/20 22:30 03/29/20 21:02 Acetaminophen Tab 325 Mg Tab PO Not Given Q6H REYNOLD Albuterol Sulfate 2.5 mg 03/26/20 23:10 Albuterol Nebulized 2.5 Mg/3 Ml INHALATION RT-TID PRN Shortness Of Breath Albuterol Sulfate 1 puff 03/27/20 08:00 03/29/20 19:54 Albuterol Hfa Inhaler INHALATION 1 puff RT-QID REYNOLD Administration Ascorbic Acid 1,000 mg 03/27/20 09:00 03/29/20 08:32 Ascorbic Acid 500 Mg Tab PO 1,000 mg DAILY REYNOLD Administration Atorvastatin Calcium 20 mg 03/27/20 21:00 03/29/20 21:01 Atorvastatin 20 Mg Tab PO 20 mg HS REYNOLD Administration Benzocaine/Menthol 1 each 03/28/20 13:37 Benzocaine/Menthol Lozeng 1 Each Lozenge MUCOUS MEM Q4HR PRN Sore Throat Budesonide/Formoterol Fumarate 1 puff 03/27/20 08:00 03/29/20 08:33 Symbicort 160-4.5 Mcg Inhaler INHALATION Not Given RT-DAILY REYNOLD Cholecalciferol 400 unit 03/27/20 09:00 03/29/20 08:33 Cholecalciferol 400 Unit Tab PO 400 unit DAILY REYNOLD Administration Dexamethasone 6 mg 03/27/20 09:00 03/29/20 08:32 Dexamethasone 2 Mg Tab PO 6 mg DAILY REYNOLD Administration Docusate Sodium 100 mg 03/26/20 23:10 Docusate 100 Mg Cap PO BID PRN Constipation Duloxetine HCl 60 mg 03/27/20 09:00 03/29/20 21:01 Duloxetine Hcl 60 Mg Capsule.Dr PO 60 mg BID REYNOLD Administration Enoxaparin Sodium 40 mg 03/27/20 18:45 03/29/20 08:34 Enoxaparin 40 Mg/0.4 Ml Syringe SQ 40 mg DAILY REYNOLD Administration Famotidine 20 mg 03/27/20 21:00 03/29/20 21:01 Famotidine 20 Mg Tab PO 20 mg HS REYNOLD Administration Glipizide 5 mg 03/27/20 07:30 03/29/20 08:33 Glipizide 5 Mg Tab PO 5 mg [id number] REYNOLD Administration Guaifenesin/Codeine Phosphate 10 ml 03/29/20 22:15 Guaifenesin-Coden 100-10mg/5ml 10 Ml Cup PO TID REYNOLD Hydroxyzine Pamoate 50 mg 03/27/20 21:00 03/29/20 21:01 Hydroxyzine Pamoate 25 Mg Cap PO 50 mg HS REYNOLD Administration Sodium Chloride 1,000 mls @ 75 mls/hr 03/26/20 21:00 03/29/20 19:19 Saline 0.9% IV 75 mls/hr .[id number] REYNOLD Administration Ibuprofen 400 mg 03/26/20 22:15 Ibuprofen 400 Mg Tab PO Q6HR PRN Mild Pain or Fever > 100.5 Insulin Detemir 10 unit 03/27/20 21:00 03/29/20 21:02 Insulin Detemir (Levemir) 100 Unit/Ml Syr SQ 10 unit HS REYNOLD Administration Lisinopril 10 mg 03/27/20 09:00 03/29/20 08:42 Lisinopril 10 Mg Tab PO 10 mg DAILY REYNOLD Administration Loperamide HCl 4 mg 03/26/20 23:10 Loperamide 2 Mg Cap PO TID PRN Diarrhea Metformin HCl 500 mg 03/27/20 07:30 03/29/20 17:00 Metformin 500 Mg Tab PO 500 mg TID-W/MEALS REYNOLD Administration Morphine Sulfate 4 mg 03/26/20 22:15 Morphine Sulfate 4 Mg/Ml Syringe IV Q4HR PRN Severe Pain Naloxone HCl 0.2 mg 03/26/20 22:15 Naloxone 0.4 Mg/Ml 1 Ml Vial IV Q2M PRN Opioid Reversal Non-Formulary Medication 10 mg 03/27/20 09:00 03/29/20 09:11 Cetirizine Hcl [Cetirizine Hcl] PO Not Given DAILY REYNOLD Ondansetron HCl 4 mg 03/26/20 22:15 Ondansetron 4 Mg/2 Ml Vial IVP Q8HR PRN Nausea And Vomiting Pantoprazole Sodium 40 mg 03/27/20 09:00 03/29/20 08:33 Pantoprazole 40 Mg Tablet PO 40 mg DAILY REYNOLD Administration Tamsulosin HCl 0.4 mg 03/27/20 21:00 03/29/20 21:01 Tamsulosin 0.4 Mg Cap.Er.24h PO 0.4 mg HS REYNOLD Administration Zinc Sulfate 220 mg 03/27/20 09:00 03/29/20 08:32 Zinc Sulfate 220 Mg Cap PO 220 mg DAILY REYNOLD Administration Objective - Vital Signs Vital signs: Vital Signs Temp 98.3 F 03/29/20 10:57 Pulse 67 03/29/20 10:57 Resp 22 03/29/20 10:57 BP 126/74 03/29/20 10:57 Pulse Ox 91 L 03/29/20 10:57 Intake & Output 03/28/20 03/29/20 03/29/20 18:59 06:59 18:59 Intake Total 1310 Output Total 800 400 Balance -800 910 Weight 127.006 kg Intake: Oral 1310 Output: Urine 800 400 Other: Voiding Method Urinal Urinal Urinal - Exam GENERAL: The patient is alert and oriented x3, not in any acute distress. Well developed, well nourished. HEENT: Pupils are round and equally reacting to light. EOMI. No scleral icterus. No conjunctival pallor. Normocephalic, atraumatic. No pharyngeal erythema. No thyromegaly. CARDIOVASCULAR: S1 and S2 present. No murmurs, rubs, or gallops. PULMONARY: Chest is clear to auscultation, no wheezing or crackles. ABDOMEN: Soft, nontender, nondistended, normoactive bowel sounds. No palpable organomegaly. MUSCULOSKELETAL: No joint swelling or deformity. EXTREMITIES: No cyanosis, clubbing, or pedal edema. NEUROLOGICAL: Gross neurological examination did not reveal any focal deficits. SKIN: No rashes. no petechiae. - Labs CBC & Chem 7: 03/28/20 07:28 03/28/20 07:28 Labs: Abnormal Lab Results - Last 24 Hours (Table) 03/28/20 03/28/20 03/28/20 Range/Units 07:28 17:10 20:01 POC Glucose (mg/dL) 126 H 107 H (75-99) mg/dL Calcium 8.4 L (8.7-10.3) mg/dL Lactate Dehydrogenase 274 H (120-246) U/L C-Reactive Protein 4.6 H (0.0-0.8) mg/dL 03/29/20 Range/Units 11:34 POC Glucose (mg/dL) 102 H (75-99) mg/dL Calcium (8.7-10.3) mg/dL Lactate Dehydrogenase (120-246) U/L C-Reactive Protein (0.0-0.8) mg/dL Microbiology - Last 24 Hours (Table) 03/26/20 19:16 Blood Culture - Preliminary Blood No Growth after 48 hours Assessment and Plan Assessment: Acute hypoxic respiratory failure secondary to COVID pneumonia Chronic bronchial asthma stable Type 2 diabetes mellitus Hypertension Hyperlipidemia GERD Plan: This is a pleasant 45 years old male who presents with cough and pneumonia. Continue with dexamethasone, zinc, ascorbic acid, vitamin C, Lovenox and his diabetic medication Pulmonary service R following the case and their input is appreciated Labs and medication were reviewed.. Continue same treatment. Continue with symptomatic treatment. Resume home medication. Monitor lytes and vitals. DVT and GI prophylaxis. Further recommendationsas per clinical course of the patient DVT prophylaxis: Subcutaneous Lovenox GI Prophylaxis: Pepcid Possible discharge in 24 hours to 48 hours
[2020-03-29] MEDS: guaiFENesin-Coden 100-10MG/5ML 10 ML CUP PO SCH (22:22)
[2020-03-30] MEDS: ACETAMINOPHEN TAB 325 MG TAB PO SCH ×3 (04:48→17:08)
[2020-03-30 07:17] LABS: Glucose,Whole Blood 85 mg/dL (75-99)
[2020-03-30] MEDS: ALBUTEROL HFA INHALER INHALATION SCH ×4 (09:07→19:40)
[2020-03-30] MEDS: dexAMETHasone 2 MG TAB PO SCH (09:10)
[2020-03-30] MEDS: guaiFENesin-Coden 100-10MG/5ML 10 ML CUP PO SCH ×2 (09:11→17:21)
[2020-03-30] MEDS: glipiZIDE 5 MG TAB PO SCH (09:11)
[2020-03-30] MEDS: ZINC SULFATE 220 MG CAP PO SCH (09:11)
[2020-03-30] MEDS: lisinopriL 10 MG TAB PO SCH (09:11)
[2020-03-30] MEDS: ASCORBIC ACID 500 MG TAB PO SCH (09:11)
[2020-03-30] MEDS: metFORMIN 500 MG TAB PO SCH ×3 (09:11→17:13)
[2020-03-30] MEDS: CHOLECALCIFEROL 400 UNIT TAB PO SCH (09:11)
[2020-03-30] MEDS: PANTOPRAZOLE 40 MG TABLET PO SCH (09:12)
[2020-03-30] MEDS ORDERED: SYMBICORT 160-4.5 MCG INHALER INHALATION SCH (09:15)
[2020-03-30] MEDS: ENOXAPARIN 40 MG/0.4 ML SYRINGE SQ SCH (09:15)
[2020-03-30] MEDS: NON FORMULARY DRUG (Cetirizine Hcl [Cetirizine Hcl] 10 MG Tablet) PO SCH (11:16)
[2020-03-30 11:23] LABS: Glucose,Whole Blood 55 mg/dL (75-99)
[2020-03-30] MEDS: DULoxetine HCL 60 MG CAPSULE.DR PO SCH (11:41)
[2020-03-30 11:42] LABS: Glucose,Whole Blood 75 mg/dL (75-99)
[2020-03-30 12:20] VITALS: BP 113/72; RESP 16; TEMP 98.5
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
[2020-03-30 13:27] VITALS: PULSE 84
--- NOTE | 2020-03-30 14:21 | ECHOF ---
Referral Reason:cp MEASUREMENTS -------- HEIGHT: 182.9 cm WEIGHT: 127.0 kg BP: 141/88 RVIDd: 3.2 cm (< 3.3) IVSd: 1.3 cm (0.6 - 1.1) LVIDd: 5.1 cm (3.9 - 5.3) LVPWd: 1.2 cm (0.6 - 1.1) IVSs: 1.9 cm LVIDs: 3.0 cm LVPWs: 1.6 cm LA Diam: 3.8 cm (2.7 - 3.8) Ao Diam: 3.3 cm (2.0 - 3.7) AV Cusp: 2.4 cm (1.5 - 2.6) MV EXCURSION: 18.048 mm (> 18.000) MV EF SLOPE: 96 mm/s (70 - 150) EPSS: 0.6 cm MV E Edilson: 1.02 m/s MV DecT: 182 ms MV A Edilson: 0.65 m/s MV E/A Ratio: 1.57 RAP: 5.00 mmHg RVSP: 27.79 mmHg FINDINGS -------- Sinus rhythm. This was a technically good study. The left ventricular size is normal. There is mild concentric left ventricular hypertrophy. Overa ll left ventricular systolic function is normal with, an EF between 60 - 65 %. The right ventricle is normal in size. The left atrial size is normal. The right atrium is normal in size. Interatrial and interventricular septum intact. The aortic valve is trileaflet and appears structurally normal. There is trace mitral regurgitation. Mild tricuspid regurgitation present. Right ventricular systolic pressure is normal at < 35 mmHg. Trace/mild (physiologic) pulmonic regurgitation. The aortic root size is normal. Normal inferior vena cava with normal inspiratory collapse consistent with estimated right atrial pre ssure of 5 mmHg. There is no pericardial effusion. CONCLUSIONS -------- 1. The left ventricular size is normal. 2. There is mild concentric left ventricular hypertrophy. 3. Overall left ventricular systolic function is normal with, an EF between 60 - 65 %. 4. There is trace mitral regurgitation. 5. Mild tricuspid regurgitation present. 6. Trace/mild (physiologic) pulmonic regurgitation. 7. There is no pericardial effusion. [employer]OLD [employer]KER: Summer Chu RDCS
[2020-03-30] MEDS: SODIUM CHLORIDE 0.9% 1,000 ML IV SCH (16:59)
[2020-03-30 17:18] LABS: Glucose,Whole Blood 100 mg/dL (75-99)
--- NOTE | 2020-03-30 22:53 | P.DS ---
Providers Date of admission: 03/26/20 21:38 Attending physician: Vicki Rojas Consults: 03/26/20 22:15 Consult Physician Stat Consulting Provider: Manish Mcdonald Consult Reason/Comments: Covid, pneumonia Do you want consulting provider notified?: Yes 03/30/20 10:25 Consult Physician Urgent Consulting Provider: Adria De Oliveira Consult Reason/Comments: chest pain Do you want consulting provider notified?: Yes Primary care physician: Stated None Hospital Course: Diagnoses: Acute hypoxic respiratory failure secondary to COVID pneumonia. Improved and patient is on room air upon discharge Chest pain developed on the day of discharge. Serial troponin and echocardiogram are unremarkable. D-dimer is negative. Chronic bronchial asthma stable Type 2 diabetes mellitus Hypertension Hyperlipidemia GERD Hospital course: Mr. Rose is a 45-year-old male with a past medical history of asthma, type 2 diabetes mellitus, GERD, hypertension, prostate disorder, obstructive sleep apnea, who is a resident of [facility] brought into the hospital for difficulty in breathing as he was tested positive for coVID 19 infection. Patient states that he has been having symptoms 3-4 days prior to testing him for Covid. He complains of cough with difficulty in breathing, sore throat generalized weakness and fatigue. Patient has been evaluated by furnace tapper. He has been treated with dexameth asone, vitamin C, zinc, vitamin D and fluid. Patient showed interval improvement he needed low-dose oxygen initially at 2-4 L/m however with treatment improved to room air, home oxygen evaluation done by nurse at bedside with exertion and patient does not need home oxygen when he is going back to his long-term. On the day of discharge patient complained from severe central chest pain, d- dimer was checked and it was negative making pulmonary embolism very unlikely At 0.48, troponin 2 were negative at less than 0.012. Echocardiogram was checked showing ejection fraction 60-65%. Patient has been evaluated by scrap bunch maker who cleared him for discharge. Also patient was cleared for discharge by pulmonary service. Problems and management plan were discussed with the patient and he verbalized understanding and acceptance Patient was found stable and can be discharged home however he needs follow-up as an outpatient. Patient was instructed to follow up with PCP within one week and patient agrees. Also patient was instructed to follow up with furnace tapper Dr. baptiste and 3-4 weeks Gen: patient is a AAOx3, no distress CVS: S1-S2, RRR, no murmur Lungs: B/L CTA, no wheezing Abdomen: soft, no distention, no tenderness, positive bowel sounds Extremity: no leg edema or induration Time spent more than 35 minutes Patient Condition at Discharge: Stable Plan - Discharge Summary Discharge Rx Participant: No New Discharge Prescriptions: New Dexamethasone [Decadron] 6 mg PO DAILY 6 Days #6 tablet Zinc Sulfate [Orazinc] 220 mg PO DAILY #30 cap Ascorbic Acid [Vitamin C] 1,000 mg PO DAILY #60 tab Cholecalciferol [Vitamin D3] 400 unit PO DAILY #30 tab Continue Pantoprazole [Protonix] 40 mg PO DAILY Famotidine [Pepcid] 20 mg PO HS Docusate [Colace] 100 mg PO BID PRN PRN Reason: Constipation Lisinopril [Zestril] 10 mg PO DAILY Cetirizine HCl 10 mg PO DAILY Atorvastatin Calcium [Lipitor] 20 mg PO HS Insulin Regular [humuLIN R] See Protocol SQ ACHS glipiZIDE [Glucotrol] 5 mg PO DAILY Mometasone/Formoterol [Dulera 200 Mcg-5 Mcg Inhaler] 1 puff INHALATION RT- DAILY hydrOXYzine pamoate [Vistaril] 50 mg PO HS Albuterol Nebulized [Ventolin Nebulized] 2.5 mg INHALATION RT-TID PRN PRN Reason: Shortness Of Breath Acetaminophen Tab [Tylenol] 650 mg PO BID PRN PRN Reason: Fever And/ Or Pain Ondansetron [Zofran] 4 - 8 mg PO TID PRN PRN Reason: Nausea Tamsulosin [Flomax] 0.4 mg PO HS Loperamide [Imodium] 4 mg PO TID PRN PRN Reason: Diarrhea DULoxetine HCL [Cymbalta] 60 mg PO BID Changed Albuterol Inhaler [Ventolin Hfa Inhaler] 1 puff INHALATION RT-QID PRN #1 puff PRN Reason: Shortness Of Breath Or Wheezing Insulin Detemir (Levemir) [Levemir] 5 unit SQ HS #0 Discontinued metFORMIN HCL [Glucophage] 500 mg PO TID Azithromycin [Zithromax] 250 mg PO HS Naproxen 500 mg PO BID Discharge Medication List Acetaminophen Tab [Tylenol] 650 mg PO BID PRN 03/26/20 [History] Albuterol Nebulized [Ventolin Nebulized] 2.5 mg INHALATION RT-TID PRN 03/26/20 [History] Atorvastatin Calcium [Lipitor] 20 mg PO HS 03/26/20 [History] Cetirizine HCl 10 mg PO DAILY 03/26/20 [History] DULoxetine HCL [Cymbalta] 60 mg PO BID 03/26/20 [History] Docusate [Colace] 100 mg PO BID PRN 03/26/20 [History] Famotidine [Pepcid] 20 mg PO HS 03/26/20 [History] Insulin Regular [humuLIN R] See Protocol SQ ACHS 03/26/20 [History] Lisinopril [Zestril] 10 mg PO DAILY 03/26/20 [History] Loperamide [Imodium] 4 mg PO TID PRN 03/26/20 [History] Mometasone/Formoterol [Dulera 200 Mcg-5 Mcg Inhaler] 1 puff INHALATION RT-DAILY 03/26/20 [History] Ondansetron [Zofran] 4 - 8 mg PO TID PRN 03/26/20 [History] Pantoprazole [Protonix] 40 mg PO DAILY 03/26/20 [History] Tamsulosin [Flomax] 0.4 mg PO HS 03/26/20 [History] glipiZIDE [Glucotrol] 5 mg PO DAILY 03/26/20 [History] hydrOXYzine pamoate [Vistaril] 50 mg PO HS 03/26/20 [History] Albuterol Inhaler [Ventolin Hfa Inhaler] 1 puff INHALATION RT-QID PRN #1 puff 03/30/20 [Rx] Ascorbic Acid [Vitamin C] 1,000 mg PO DAILY #60 tab 03/30/20 [Rx] Cholecalciferol [Vitamin D3] 400 unit PO DAILY #30 tab 03/30/20 [Rx] Dexamethasone [Decadron] 6 mg PO DAILY 6 Days #6 tablet 03/30/20 [Rx] Insulin Detemir (Levemir) [Levemir] 5 unit SQ HS #0 03/30/20 [Rx] Zinc Sulfate [Orazinc] 220 mg PO DAILY #30 cap 03/30/20 [Rx] Follow up Appointment(s)/Referral(s): None,Stated [Primary Care Provider] - 1-2 days Manish Mcdonald DO [Doctor of Osteopathic Medicine] - 4 Weeks (furnace tapper ) Patient Instructions/Handouts: Albuterol (By breathing), Ascorbic Acid (By mouth), Dexamethasone (By mouth), Zinc Supplement (By mouth), Vitamin D (By mouth) Activity/Diet/Wound Care/Special Instructions: Diabete Diet as tolerated Activity limited until seen by Dr. Jaron Garcia discharge instructions Discharge Disposition: HOME SELF-CARE
== END 2020-03-30 19:56 | disposition home or self-care (01) | DRG 177 ==
LOC: EC 18:15 → 6NMEDSUR 21:38
PROVIDERS: ADMIT Hospitalist; ATTEND Hospitalist
DX: U07.1 COVID-19 (principal); J12.89 Other viral pneumonia; J96.01 Acute respiratory failure with hypoxia; J45.909 Unspecified asthma, uncomplicated; K21.9 Gastro-esophageal reflux disease without esophagitis; N40.0 Benign prostatic hyperplasia without lower urinary tract symptoms; E78.5 Hyperlipidemia, unspecified; G47.33 Obstructive sleep apnea (adult) (pediatric); E11.9 Type 2 diabetes mellitus without complications; I10 Essential (primary) hypertension; Z96.641 Presence of right artificial hip joint; Z79.4 Long term (current) use of insulin; Z79.51 Long term (current) use of inhaled steroids; Z79.899 Other long term (current) drug therapy; Z82.49 Family history of ischemic heart disease and other diseases of the circulatory system; Z87.11 Personal history of peptic ulcer disease; Z87.891 Personal history of nicotine dependence
CPT/HCPCS: 36415; 71045; 80048; 80053; 82728; 83605; 83615; 83735; 84145; 84484; 85025; 85379; 85610; 85730; 86140; 87040; 93005; 93306; 94640; 96361; 96372; 96374; 96375; 99285

== ENCOUNTER 2020-05-03 10:47 | Day surgery (SDC) | payer OTHER ==
[2020-04-29 10:22] VITALS: BMI 39.0
[~2020-05-03 10:47] MED LIST: LACTATED RINGERS 1,000 ML IV SCH; LIDOCAINE 1% (10MG/ML) FOR IV START INTRADERMA PRN
[2020-05-03 11:03] VITALS: RESP 16; TEMP 98.5
[2020-05-03 11:09] LABS: Glucose,Whole Blood 99 mg/dL (75-99)
[2020-05-03] MEDS ORDERED: fentaNYL (PF) 50 MCG/ML 2 ML AMP ONE (11:36)
[2020-05-03] MEDS ORDERED: MIDAZOLAM 2 MG/2 ML VIAL ONE (11:36)
[2020-05-03] MEDS ORDERED: PROPOFOL 10 MG/ML 20 ML VIAL IV ONE (11:36)
[2020-05-03] MEDS ORDERED: LIDOCAINE 1% INJ 10MG/ML (20 ML MDV) ONE (11:36)
--- NOTE | 2020-05-03 12:26 | P.PCN ---
Date of Procedure: 05/03/20 Description of Procedure: Brief history: Patient is a 45-year-old male presenting for outpatient EGD and colonoscopy for evaluation of GERD and personal history of malignant neoplasm of the colon. Patient reports symptoms of heartburn especially at night. Currently on Protonix daily with Pepcid at night. Previously taking naproxen twice a day for chronic pain and is now on meloxicam. Last colonoscopy approximately 5 years ago. He does report EGD with esophageal trauma from evolving partial gastric resection. Patient underwent partial bowel resection with colostomy formation and reversal in 2009 for colon cancer. Procedure performed: Esophagogastroduodenoscopy with biopsy Colonoscopy Estimated blood loss: Minimal. Preoperative diagnosis: GERD, personal history of colon cancer, patient was last colonoscopy 5 years Anesthesia: MAC Procedure: After informed consent was obtained from the patient was brought into the endoscopy unit and IV sedation was administered by anesthesia under continuous monitoring. Initially upper endoscopy was done. The Olympus GF 190 video endoscope was inserted into the mouth and esophagus intubated without any difficulty and was gradually advanced into the stomach and duodenum and carefully examined. The bulb and second part of the duodenum appeared normal, with biopsies taken. The scope was then withdrawn into the stomach adequately insufflated with air and upon careful examination the antrum and body, cardia and fundus was significant for an abnormality in the gastric body along the major curvature suggestive of prior partial gastric resection and repair with socrates noted. There was also some mild erythema in antrum and body suggestive of mild gastritis with biopsies taken. The scope was then withdrawn into the esophagus. The GE junction was located at 35 cm to the incisors, with a 6 cm hiatal hernia noted. Biopsies of the GE junction taken. It appeared regular with no erythema erosions or ulcerations. Rest of the esophagus appeared normal. Patient tolerated the procedure well. At this time the patient continued to remain sedation. Initial digital rectal examination was normal. Olympus CF 190 video colonoscope was then inserted into the rectum and gradually advanced to the cecum without any difficulty. Careful examination was performed as the scope was gradually being withdrawn. The prep was good in the left colon but fair in the right colon with large amounts of liquid and semisolid stool which was extensively lavaged however complete visualization of the mucosa wasn't able to be achieved. The cecum, ascending colon, transverse colon, descending colon, sigmoid colon and rectum appeared normal, with evidence of anastomotic site from prior colectomy with reversal not visualized. Retroflexion was performed in the rectum and no lesions were noted, low-grade internal hemorrhoids. Patient tolerated the procedure well. Impression: 1. Mild gastritis. Staple and gastric body deformity from prior gastric repair. 2. Fair prep. However,: Mucosa which was visualized and appeared normal. Low- grade internal hemorrhoids. Recommendations: Findings of this examination were discussed with the patient. Okay to resume diet. Continue Protonix and Pepcid therapy. Await pathology from biopsies. Follow up in GI clinic as scheduled. Recommend repeat colonoscopy in 3 years given history of colon cancer and fair prep.
[2020-05-03 12:36] VITALS: BP 106/72; PULSE 80
== END 2020-05-03 12:57 ==
LOC: ORWHC2ENDO 10:47
PROVIDERS: ATTEND Internal Medicine
DX: Z12.11 Encounter for screening for malignant neoplasm of colon (principal); K64.8 Other hemorrhoids; Z85.038 Personal history of other malignant neoplasm of large intestine; K21.9 Gastro-esophageal reflux disease without esophagitis; K29.50 Unspecified chronic gastritis without bleeding; K44.9 Diaphragmatic hernia without obstruction or gangrene; G89.29 Other chronic pain; I10 Essential (primary) hypertension; J45.909 Unspecified asthma, uncomplicated; G47.33 Obstructive sleep apnea (adult) (pediatric); E11.9 Type 2 diabetes mellitus without complications; Z87.891 Personal history of nicotine dependence; Z79.4 Long term (current) use of insulin; Z79.899 Other long term (current) drug therapy; Z79.1 Long term (current) use of non-steroidal anti-inflammatories (NSAID); Z98.890 Other specified postprocedural states; Z90.49 Acquired absence of other specified parts of digestive tract; Z96.641 Presence of right artificial hip joint; Z99.89 Dependence on other enabling machines and devices; Z86.16 Personal history of COVID-19; Z87.828 Personal history of other (healed) physical injury and trauma
CPT/HCPCS: 43239; 88305; G0105; J2250; J2001; J3010; J2704; 45378

== ENCOUNTER → 2020-09-02 | Outpatient (CLI) | payer OTHER ==
[2020-09-02 14:51] LABS: African American GFR (CKD) >90 (>60 ml/min/1.73 sqM); Blood Urea Nitrogen 18 mg/dL (9-20); Non-African American GFR(CKD) 82 (>60 ml/min/1.73 sqM)
--- NOTE | 2020-09-02 20:08 | CT ---
EXAMINATION TYPE: CT abdomen pelvis w con DATE OF EXAM: 09/02/2020 COMPARISON: None HISTORY: Abdominal wall hernia into scrotum CT DLP: 2952.1 mGycm Automated exposure control for dose reduction was used. CONTRAST: CT scan of the abdomen pelvis is performed with IV Contrast, patient injected with 100 mL of Isovue 3 00. FINDINGS- LUNG BASES-2 mm calcified right lower lobe subpleural nodule compatible with granuloma.. LIVER/GB- No gross abnormality is appreciated. PANCREAS- No gross abnormality is seen. SPLEEN- No gross abnormality is seen. ADRENALS- No gross abnormality is seen. KIDNEYS/BLADDER- no hydronephrosis nephrolithiasis or renal mass. BOWEL-bowel gas pattern nonspecific. Postsurgical changes involving the stomach.. LYMPH NODES- No greater than 1cm abdominal or pelvic lymph nodes areappreciated. OSSEOUS STRUCTURES- No significant abnormality is seen. OTHER- there is a small fat-containing periumbilical hernia. Fat-containing bilateral inguinal herni as. Hypertrophic changes of the spine. Aorta of normal caliber. IMPRESSION- 1. No acute process. 2. Fat-containing bilateral inguinal hernias. 3. Small periumbilical fat-containing hernia. 4. Postoperative gastric surgery. Correlate clinically.
== END | disposition home or self-care (01) ==
LOC: RADCTMAIN 13:58
PROVIDERS: ATTEND Student in an Organized Health Care Education/Training Program
DX: K40.20 Bilateral inguinal hernia, without obstruction or gangrene, not specified as recurrent (principal); K42.9 Umbilical hernia without obstruction or gangrene
CPT/HCPCS: 82565; 84520; 74177; 36415; Q9967

== ENCOUNTER 2020-09-29 15:34 | Observation (INO) | payer OTHER ==
[2020-09-29] MEDS ORDERED: ASPIRIN 81 MG PO STA (15:47)
[2020-09-29] MEDS ORDERED: LORazepam 2 MG/ML INJ IV STA (15:47)
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
[2020-09-29] MEDS: NITROGLYCERIN OINT 1 INCH/GM PACKET TOPICAL STA ×2 (16:09→17:11)
[2020-09-29 16:10] LABS: Basophils % (A) 1 %; Eosinophils # (A) 0.2 k/uL (0-0.7); Eosinophils % (A) 4 %; HCT 35.8 % (39.0-53.0); HGB 11.8 gm/dL (13.0-17.5); Lymphocytes # (A) 1.5 k/uL (1.0-4.8); Lymphocytes % (A) 29 %; MCH 25.9 pg (25.0-35.0); MCHC 32.8 g/dL (31.0-37.0); Mean Platelet Volume 7.4; Monocytes # (A) 0.4 k/uL (0-1.0); Monocytes % (A) 7 %; Neutrophils % (A) 57 %; Platelet Count 228 k/uL (150-450); RBC 4.53 m/uL (4.30-5.90); RDW 15.8 % (11.5-15.5); WBC 5.3 k/uL (3.8-10.6)
[2020-09-29 16:13] LABS: ALT 11 U/L (4-49); AST 17 U/L (17-59); African American GFR (CKD) >90 (>60 ml/min/1.73 sqM); Albumin 2.1 g/dL (3.5-5.0); Alkaline Phosphatase 35 U/L (38-126); Anion Gap 9 mmol/L; Blood Urea Nitrogen 14 mg/dL (9-20); Carbon Dioxide 12 mmol/L (22-30); Chloride 119 mmol/L (98-107); Glucose 82 mg/dL (74-99); Magnesium 1.1 mg/dL (1.6-2.3); Non-African American GFR(CKD) >90 (>60 ml/min/1.73 sqM); Sodium 140 mmol/L (137-145); Total Bilirubin <0.1 mg/dL (0.2-1.3); Total Protein 4.3 g/dL (6.3-8.2)
[2020-09-29 16:15] LABS: Prothrombin Time 10.6 sec (9.0-12.0)
[2020-09-29 16:25] LABS: Calcium 6.1 mg/dL (8.4-10.2); Potassium 2.5 mmol/L (3.5-5.1)
[2020-09-29] MEDS ORDERED: SODIUM CHLORIDE 0.9% 1,000 ML IV ONE ×2 (16:28→19:11)
--- NOTE | 2020-09-29 16:52 | XR ---
EXAMINATION TYPE: XR chest 2V DATE OF EXAM: 09/29/2020 COMPARISON: Chest x-ray March 26, 2020 HISTORY: Chest pain. TECHNIQUE: Frontal and lateral views of the chest are obtained. FINDINGS: Slightly elevated left hemidiaphragm redemonstrated. There is marked interval improvement in bilateral multifocal opacities. No pleural effusion or pneumothorax seen currently. The cardiac si lhouette size is stable and upper limits of normal. The osseous structures are intact. IMPRESSION: No acute cardiopulmonary process currently.
[2020-09-29] MEDS ORDERED: POTASSIUM CHLORIDE ER 20 MEQ TAB.ER PO STA (16:57)
[2020-09-29] MEDS ORDERED: CALCIUM CHLORIDE 100 MG/ML 10 ML SYRINGE IVP STA (16:57)
[2020-09-29] MEDS ORDERED: POTASSIUM CHLORIDE 20 MEQ in WATER FOR INJECTION 1 100ML.BAG IVPB STA (16:57)
[2020-09-29] MEDS ORDERED: NITROGLYCERIN SL TABS 0.4 MG TAB SUBLINGUAL PRN (17:38)
[2020-09-29] MEDS ORDERED: HEPARIN SODIUM 1,000 UN/ML (10ML VL) IV STA (17:39)
[2020-09-29] MEDS ORDERED: HEPARIN SOD,PORK IN 0.45% NACL 25,000 UNIT in 0.45% NACL 1 250ML.BAG IV SCH (17:45)
[2020-09-29] MEDS ORDERED: NALOXONE 0.4 MG/ML 1 ML VIAL IV PRN (17:57)
[2020-09-29] MEDS ORDERED: ALPRAZolam 0.25 MG TAB PO PRN (17:58)
[2020-09-29] MEDS ORDERED: ACETAMINOPHEN TAB 325 MG TAB PO PRN (17:58)
[2020-09-29] MEDS ORDERED: MELATONIN 3 MG TABLET PO PRN (17:58)
[2020-09-29] MEDS ORDERED: POTASSIUM BICARBONATE/CIT AC 20 MEQ TABLET.EFF PO ONE (18:00)
[2020-09-29] MEDS ORDERED: ALBUTEROL NEBULIZED 2.5 MG/3 ML INHALATION PRN ×2 (18:03)
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
[2020-09-29 18:59] LABS: African American GFR (CKD) >90 (>60 ml/min/1.73 sqM); Anion Gap 10 mmol/L; Blood Urea Nitrogen 19 mg/dL (9-20); Calcium 9.8 mg/dL (8.4-10.2); Carbon Dioxide 21 mmol/L (22-30); Chloride 105 mmol/L (98-107); Glucose 90 mg/dL (74-99); Non-African American GFR(CKD) >90 (>60 ml/min/1.73 sqM); Potassium 4.1 mmol/L (3.5-5.1); Sodium 136 mmol/L (137-145)
[2020-09-29] MEDS ORDERED: MAGNESIUM SULFATE-D5W PMX 1 GM in DEXTROSE/WATER 1 100ML.BAG IVPB SCH (19:00)
[2020-09-29] MEDS: SODIUM CHLORIDE 0.9% 1,000 ML IV SCH (19:06)
[2020-09-29] MEDS: SYMBICORT 160-4.5 MCG INHALER INHALATION SCH (20:25)
[2020-09-29] MEDS ORDERED: INSULIN DETEMIR (LEVEMIR) 100 UNIT/ML SYR SQ SCH (21:00)
[2020-09-29] MEDS ORDERED: FAMOTIDINE 20 MG TAB PO SCH (21:00)
[2020-09-29] MEDS ORDERED: ATORVASTATIN 20 MG TAB PO SCH (21:00)
[2020-09-29] MEDS: DULoxetine HCL 60 MG CAPSULE.DR PO SCH (21:28)
[2020-09-29] MEDS: INSULIN ASPART (NovoLOG) 100 UNIT/ML VIAL SQ SCH (21:28)
[2020-09-29] MEDS: TAMSULOSIN 0.4 MG CAP.ER.24H PO SCH (21:28)
[2020-09-29] MEDS: PANTOPRAZOLE 40 MG TABLET PO SCH (21:28)
[2020-09-29 21:35] LABS: Glucose,Whole Blood 101 mg/dL (75-99)
[2020-09-29 22:30] LABS: Potassium 4.7 mmol/L (3.5-5.1)
[2020-09-29 22:31] LABS: African American GFR (CKD) >90 (>60 ml/min/1.73 sqM); Anion Gap 9 mmol/L; Blood Urea Nitrogen 18 mg/dL (9-20); Calcium 9.4 mg/dL (8.4-10.2); Carbon Dioxide 21 mmol/L (22-30); Chloride 106 mmol/L (98-107); Glucose 113 mg/dL (74-99); Magnesium 1.7 mg/dL (1.6-2.3); Non-African American GFR(CKD) >90 (>60 ml/min/1.73 sqM); Sodium 136 mmol/L (137-145)
[2020-09-30] MEDS ORDERED: HEPARIN SODIUM 1,000 UN/ML (10ML VL) IVP PRN (02:40)
[2020-09-30 06:37] LABS: Glucose,Whole Blood 88 mg/dL (75-99)
[2020-09-30] MEDS: INSULIN ASPART (NovoLOG) 100 UNIT/ML VIAL SQ SCH (06:48)
[2020-09-30] MEDS: PANTOPRAZOLE 40 MG TABLET PO SCH (06:49)
[2020-09-30 07:53] LABS: Glucose,Whole Blood 89 mg/dL (75-99)
[2020-09-30] MEDS: SYMBICORT 160-4.5 MCG INHALER INHALATION SCH (08:12)
[2020-09-30] MEDS: SODIUM CHLORIDE 0.9% 1,000 ML IV SCH (08:58)
[2020-09-30] MEDS: DULoxetine HCL 60 MG CAPSULE.DR PO SCH (08:59)
[2020-09-30] MEDS: TAMSULOSIN 0.4 MG CAP.ER.24H PO SCH (08:59)
[2020-09-30 09:00] LABS: HCT 37.1 % (39.0-53.0); HGB 11.7 gm/dL (13.0-17.5); Hypochromasia Slight; MCH 25.6 pg (25.0-35.0); MCHC 31.6 g/dL (31.0-37.0); MCV 81.1 fL (80.0-100.0); Mean Platelet Volume 7.2; Platelet Count 194 k/uL (150-450); RBC 4.57 m/uL (4.30-5.90); RDW 15.8 % (11.5-15.5); WBC 5.2 k/uL (3.8-10.6)
[2020-09-30] MEDS ORDERED: lisinopriL 10 MG TAB PO SCH (09:00)
[2020-09-30] MEDS ORDERED: ASPIRIN 325 MG TAB PO SCH (09:00)
[2020-09-30] MEDS ORDERED: LORATADINE 10 MG TAB PO SCH (09:00)
[2020-09-30 09:08] LABS: African American GFR (CKD) >90 (>60 ml/min/1.73 sqM); Anion Gap 6 mmol/L; Blood Urea Nitrogen 15 mg/dL (9-20); Calcium 9.1 mg/dL (8.4-10.2); Carbon Dioxide 25 mmol/L (22-30); Chloride 106 mmol/L (98-107); Glucose 85 mg/dL (74-99); Magnesium 1.8 mg/dL (1.6-2.3); Non-African American GFR(CKD) >90 (>60 ml/min/1.73 sqM); Potassium 4.6 mmol/L (3.5-5.1); Sodium 137 mmol/L (137-145)
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
[2020-09-30] MEDS ORDERED: DOBUTamine DRIP for NUC MED 500 MG in DEXTROSE/WATER 1 250ML.BAG IV PRN (11:40)
[2020-09-30] MEDS ORDERED: METOPROLOL TARTRATE 5 MG/5 ML VIAL IVP ONE (11:58)
[2020-09-30] MEDS ORDERED: ATROPINE SULFATE 0.1 MG/ML 10ML SYRINGE ONE (11:58)
[2020-09-30 12:31] VITALS: RESP 16; TEMP 98
[2020-09-30 15:11] LABS: Hemoglobin A1C 5.6 % (4.0-6.0)
[2020-09-30 16:47] VITALS: BP 120/87; PULSE 72
[2020-09-30 17:37] LABS: Chol/HDL Ratio 2.54; Cholesterol 122 mg/dL (0-200); LDL Cholesterol,Calculated 63.4 mg/dL (0.0-131.0)
--- NOTE | 2020-09-30 18:17 | P.DS ---
Providers Date of admission: 09/29/20 17:38 Attending physician: Jessika Clemente DO Consults: 09/29/20 17:38 Consult Physician Urgent Consulting Provider: [facility] Consult Reason/Comments: Unstable angina Do you want consulting provider notified?: Yes Primary care physician: Stated None Hospital Course: Discharge Diagnosis: non cardiac chest pain Hypokalemiia, hypomagensemia, and hypoclacemia suspected lab variation Hyperchloremic metabolic acidosis also likely lab variation Anemia DM II, insulin requiring Hypotension, resolved asthma without exacerbation Obesity with BMI 38.7 Hospital Course: Patient is a 45-year-old male who presented from [facility] with known diabetes 2 insulin requiring and dyslipidemia as well as tobacco abuse who presented secondary to chest pain. On arrival to the ER he was hypertensive with a blood pressure of 121/102 which resolved to 88/66. Laboratory analysis showed a hemoglobin of 11.8, potassium 2.5, carbon dioxide 12, anion gap 9, chloride 119, calcium 6.1, magnesium 1.1. Initial EKG shoes J point elevation in I/II and V 5/6 with T-wave inversion in III. Chest x-ray with no acute process. In the ER he was given aspirin, Nitropaste, potassium, and calcium replacement. Stat recheck of his electrolytes revealed normalization of his chloride, acidosis, and potassium. His magnesium also was 1.7 without replacement. This report points to possible lab error on initial blood draw. He was seen by cardiology on the morning of 09/30 and underwent dobutamine stress test which was negative per verbal report. Follow-up: [employer] at [facility] for pulmonary symptoms and abdominal hernia, recommend repeat BMP and magnesium in 1 week. Patient was initially admitted as inpatient due to suspected laboratory abnormalities, however with rapid improvement of these he was able to be discharged faster than anticipated and in less than 2 midnights. Patient seen and examined at bedside. Currently chest pain free, breathing is at baseline, Vital signs reviewed and stable. General: non toxic, no distress, appears at stated age Derm: warm, dry Head: atraumatic, normocephalic, symmetric Eyes: EOMI, no lid lag, anicteric sclera Mouth: no lip lesion, mucus membranes moist Cardiovascular: S1S2 tachycardic, no murmur, positive posterior tibial pulse bilateral, Lungs: CTA bilateral, no rhonchi, no rales , no accessory muscle use Abdominal: soft, nontender to palpation, no guarding, no appreciable organomegaly Ext: no gross muscle atrophy, no edema, no contractures Neuro: CN II-XI grossly intact, no focal neuro deficits Psych: Alert, oriented, appropriate affect A total of 25 minutes of time were spent preparing this complex discharge summary . Patient Condition at Discharge: Stable Plan - Discharge Summary New Discharge Prescriptions: Continue Pantoprazole [Protonix] 40 mg PO BID Famotidine [Pepcid] 20 mg PO HS Docusate [Colace] 100 mg PO BID PRN PRN Reason: Constipation Lisinopril [Zestril] 10 mg PO DAILY Cetirizine HCl 10 mg PO DAILY Atorvastatin Calcium [Lipitor] 20 mg PO HS glipiZIDE [Glucotrol] 5 mg PO DAILY Mometasone/Formoterol [Dulera 200 Mcg-5 Mcg Inhaler] 2 puff INHALATION RT-BID Albuterol Nebulized [Ventolin Nebulized] 2.5 mg INHALATION RT-TID PRN PRN Reason: Shortness Of Breath Tamsulosin [Flomax] 0.4 mg PO BID DULoxetine HCL [Cymbalta] 60 mg PO BID metFORMIN HCL [Glucophage] 500 mg PO BID Insulin Detemir (Levemir) [Levemir] 10 unit SQ HS Naproxen [Naprosyn] 500 mg PO BID Albuterol Sulfate [Ventolin HFA] 2 puff INHALATION RT-QID PRN PRN Reason: Shortness Of Breath Insulin Regular, Human [NovoLIN R] See Protocol SQ ACHS Discontinued hydroCHLOROthiazide [Hydrodiuril] 25 mg PO HS Discharge Medication List Albuterol Nebulized [Ventolin Nebulized] 2.5 mg INHALATION RT-TID PRN 03/26/20 [History] Atorvastatin Calcium [Lipitor] 20 mg PO HS 03/26/20 [History] Cetirizine HCl 10 mg PO DAILY 03/26/20 [History] DULoxetine HCL [Cymbalta] 60 mg PO BID 03/26/20 [History] Docusate [Colace] 100 mg PO BID PRN 03/26/20 [History] Famotidine [Pepcid] 20 mg PO HS 03/26/20 [History] Lisinopril [Zestril] 10 mg PO DAILY 03/26/20 [History] Mometasone/Formoterol [Dulera 200 Mcg-5 Mcg Inhaler] 2 puff INHALATION RT-BID 03/26/20 [History] Pantoprazole [Protonix] 40 mg PO BID 03/26/20 [History] Tamsulosin [Flomax] 0.4 mg PO BID 03/26/20 [History] glipiZIDE [Glucotrol] 5 mg PO DAILY 03/26/20 [History] Insulin Detemir (Levemir) [Levemir] 10 unit SQ HS 04/29/20 [History] metFORMIN HCL [Glucophage] 500 mg PO BID 04/29/20 [History] Albuterol Sulfate [Ventolin HFA] 2 puff INHALATION RT-QID PRN 09/29/20 [History] Insulin Regular, Human [NovoLIN R] See Protocol SQ ACHS 09/29/20 [History] Naproxen [Naprosyn] 500 mg PO BID 09/29/20 [History] Follow up Appointment(s)/Referral(s): None,Stated [Primary Care Provider] - 1-2 days Activity/Diet/Wound Care/Special Instructions: Activity: as tolerated Diet: heart health, carb consistent Special Instructions: repeat BMP, magnesium in 1 week DX: Hypokalemia: hold Hydrochlorothiazide until this blood work is back Recommend [facility] regarding chronic dyspnea after COVID-19 Discharge Disposition: HOME SELF-CARE
--- NOTE | 2020-10-03 08:20 | ECHOS ---
STRESS ECHOCARDIOGRAM LUMASON: INDICATIONS: Chest pain. MEDICATIONS: BASELINE HEART RATE: 74 BASELINE BLOOD PRESSURE: 113/62 MAXIMUM HEART RATE: 144 MAXIMUM BLOOD PRESSURE: 140/72 85% MPHR: 148 100% MPHR: 171 METS: MAXIMUM STAGE REACHED: II TOTAL EXERCISE TIME: 5:56 CLINICAL INFORMATION: Chest pain STRESS DATA: Heart rate 74, pressure is 113/62 mmHg. Baseline EKG showed sinus mechanism. Dobutamine infusion at a dose of 10 mcg/kg per minute was initiated and increased to 20 mcg/kg per minute. We gave the patient 2 mg of atropine to enhance the heart rate. With dobutamine and atropine, the patient achieved a max heart rate of 144 which is about 85% of maximum predicted heart rate and maximum blood pressure was 140/72 mmHg. Clinically, he did not have any symptoms and the EKG did not show any significant ST or T-wave abnormalities concerning for ischemia. On echocardiogram images and echo from parasternal long axis view, parasternal short axis, apical 4 chamber and apical 2 chamber obtained as the baseline images, at low dose dobutamine infusion, as well as at peak heart rate. The echo showed good augmentation in the left ventricular systolic function without any evidence of wall motion abnormalities concerning for ischemia. CONCLUSION: 1. Normal EKG in response to dobutamine. 2. Normal echocardiogram in response to dobutamine. MMODL / IJN: [id number] /
--- NOTE | 2020-10-04 10:00 | ECHOF ---
Referral Reason:chest pain MEASUREMENTS -------- HEIGHT: 0.0 cm WEIGHT: 0.0 kg BP: RVIDd: 3.2 cm (< 3.3) IVSd: 1.0 cm (0.6 - 1.1) LVIDd: 4.6 cm (3.9 - 5.3) LVPWd: 1.2 cm (0.6 - 1.1) IVSs: 1.3 cm LVIDs: 3.3 cm LVPWs: 1.4 cm LA Diam: 3.9 cm (2.7 - 3.8) Ao Diam: 2.6 cm (2.0 - 3.7) AV Cusp: 2.3 cm (1.5 - 2.6) LA Diam: 3.9 cm (2.7 - 3.8) MV EXCURSION: 19.806 mm (> 18.000) MV EF SLOPE: 115 mm/s (70 - 150) EPSS: 0.2 cm MV E Edilson: 0.95 m/s MV DecT: 240 ms MV A Edilson: 0.73 m/s MV E/A Ratio: 1.31 RAP: 5.00 mmHg RVSP: 14.95 mmHg FINDINGS -------- Sinus rhythm. Morbid Obesity This was a techncally difficult study with suboptimal views, , Lumason utilized for enhancement of im ages. LV size, wall thickness and systolic function are normal, with an EF greater than 55%. The left laurel tricular size is normal. The right ventricle is normal in size. The left atrial size is normal. The right atrial size is normal. 5.0mg OF Lumason UTLIZED: 2 OR MORE WALL SEGMENTS NOT VISUALIZED. The aortic valve was not well visualized. Mild mitral regurgitation is present. Mild tricuspid regurgitation present. Right ventricular systolic pressure is normal at < 35 mmHg. The pulmonic valve was not well visualized. The aortic root size is normal. There is no pericardial effusion. CONCLUSIONS -------- 1. Morbid Obesity 2. This was a techncally difficult study with suboptimal views, , Lumason utilized for enhancement of images. 3. LV size, wall thickness and systolic function are normal, with an EF greater than 55%. 4. The left ventricular size is normal. 5. The right ventricle is normal in size. 6. The left atrial size is normal. 7. The right atrial size is normal. 8. 5.0mg OF Lumason UTLIZED: 2 OR MORE WALL SEGMENTS NOT VISUALIZED. 9. The aortic valve was not well visualized. 10. Mild mitral regurgitation is present. 11. Mild tricuspid regurgitation present. 12. The pulmonic valve was not well visualized. 13. The aortic root size is normal. 14. There is no pericardial effusion. HIGHWAY INSPECTOR: Katherine Kim RDCS
== END 2020-09-30 18:38 | disposition home or self-care (01) ==
LOC: EC 15:34 → OBSVTOIN 17:38 → 3SCARD 17:38 → INTOOBSV 17:38 → 3SCARD 09-30 15:24 → UNDODISIN 09-30 18:38
PROVIDERS: ADMIT Internal Medicine; ATTEND Internal Medicine
DX: R07.89 Other chest pain (principal); R07.2 Precordial pain; E87.6 Hypokalemia; E83.42 Hypomagnesemia; E83.51 Hypocalcemia; E87.8 Other disorders of electrolyte and fluid balance, not elsewhere classified; E87.2 Acidosis; D64.9 Anemia, unspecified; E11.9 Type 2 diabetes mellitus without complications; I95.9 Hypotension, unspecified; R00.2 Palpitations; E66.9 Obesity, unspecified; Z68.38 Body mass index [BMI] 38.0-38.9, adult; J45.909 Unspecified asthma, uncomplicated; E78.5 Hyperlipidemia, unspecified; I10 Essential (primary) hypertension; K21.9 Gastro-esophageal reflux disease without esophagitis; K44.9 Diaphragmatic hernia without obstruction or gangrene; E78.00 Pure hypercholesterolemia, unspecified; G47.33 Obstructive sleep apnea (adult) (pediatric); G89.29 Other chronic pain; M54.5 Low back pain; N28.9 Disorder of kidney and ureter, unspecified; K59.00 Constipation, unspecified; N40.0 Benign prostatic hyperplasia without lower urinary tract symptoms; Z20.822 Contact with and (suspected) exposure to COVID-19; Z86.16 Personal history of COVID-19; Z87.891 Personal history of nicotine dependence; Z87.828 Personal history of other (healed) physical injury and trauma; Z87.442 Personal history of urinary calculi; Z87.19 Personal history of other diseases of the digestive system; Z87.11 Personal history of peptic ulcer disease; Z96.641 Presence of right artificial hip joint; Z79.899 Other long term (current) drug therapy; Z79.51 Long term (current) use of inhaled steroids; Z79.4 Long term (current) use of insulin; Z90.49 Acquired absence of other specified parts of digestive tract; Z82.49 Family history of ischemic heart disease and other diseases of the circulatory system
CPT/HCPCS: 96376 ×2; 96361; 96365; 96366 ×2; 96375; 99291; 36415; 94640 ×2; 93005; 82570; 80061; 80053; 80048 ×2; 84133; 82330; 83735 ×2; 84484; 85025; 85027; 85610; 85730 ×2; 83036; 87635; 71046; G0378 ×2; C8929; C8930; J2060; J1250; J3480; J0461; J1644 ×3; Q9950; 93306; 93351; 96374